=== PATIENT | female | born 1990 | race Two or more races ===

== ENCOUNTER 2020-03-15 10:57 | Emergency (ER) | payer MEDICAID, OTHER ==
[~2020-03-15] VITALS: Ht 157.5 cm; Wt 86.2 kg
[2020-03-15 11:45] LABS: Basophils # (auto) 0.1 10 ^3/uL (0-0.2); Basophils % (auto) 1.3 % (0.0-2.0); Eosinophils # (auto) 0.1 10 ^3/uL (0-0.8); Eosinophils % (auto) 1.3 % (0.0-7.0); Hematocrit 50.5 % (36.0-46.0); Hemoglobin 17.6 g/dL (12.2-16.2); Lymphocytes # (auto) 1.2 10 ^3/uL (0.4-5.4); Lymphocytes % (auto) 17.1 % (10.0-50.0); Mean Corpuscular Hemoglobin 30.8 pg (28.0-32.0); Mean Corpuscular Hgb Conc. 34.8 g/dL (32.0-36.0); Mean Corpuscular Volume 88.5 fL (80.0-100.0); Monocytes # (auto) 0.7 10 ^3/uL (0-1.3); Monocytes % (auto) 10.1 % (0.0-12.0); Neutrophils # (auto) 4.9 10 ^3/uL (1.6-8.6); Neutrophils % (auto) 70.2 % (37.0-80.0); Nucleated Red Blood Cells % 0.1 %; Red Blood Cells 5.71 10^6/uL (4.0-5.20); Red Cell Distribution Width 13.9 % (11.8-14.3); White Blood Cell 6.9 10^3/uL (4.4-10.8)
[2020-03-15 12:03] LABS: Albumin 4.2 g/dL (3.4-5.0); Anion Gap 6 (5-15); Blood Urea Nitrogen 6 mg/dL (7-18); Calcium 9.4 mg/dL (8.5-10.1); Carbon Dioxide 29 mmol/L (21-32); Chloride 100 mmol/L (98-107); Glucose 97 mg/dL (74-106); Sodium 135 mmol/L (136-145)
[2020-03-15 12:10] LABS: Alanine Aminotransferase 56 U/L (13-56); Alkaline Phosphatase 91 U/L (45-117); Aspartate Aminotransferase 49 U/L (15-37); BUN/Creatinine Ratio 7.1; Bilirubin, Total 0.6 mg/dL (0.2-1.0); GFR African American 103 mL/min; GFR Non-African American 85 mL/min; Total Protein 9.7 g/dL (6.4-8.2)
[2020-03-15 12:30] LABS: Amphetamine Screen, Urine NEGATIVE (NEGATIVE); Barbiturate Scree,Urine NEGATIVE (NEGATIVE); Benzodiazephine Screen, Urine NEGATIVE (NEGATIVE); Cannabinoid Screen, Urine NEGATIVE (NEGATIVE); Cocaine Screen, Urine NEGATIVE (NEGATIVE); Opiate Scree,Urine NEGATIVE (NEGATIVE); Phencyclidine Screen, Urine NEGATIVE (NEGATIVE); Urine Bacteria FEW /hpf (None Seen); Urine Blood 3+ /uL (Negative); Urine Mucus FEW (None Seen); Urine Specific Gravity 1.015 (1.001-1.035); Urine WBC 65 /hpf (0 - 5); Urine WBC Clumps PRESENT /hpf (None Seen)
[2020-03-15 12:45] VITALS: BP 147/118
[2020-03-15] MEDS ORDERED: cefTRIAXone SOD 1,000 MG VL IM ONE (13:00)
[2020-03-15] MEDS ORDERED: POTASSIUM EFFERVESENT TAB 25 MEQ PO ONE (13:00)
[2020-03-15] MEDS ORDERED: ALPRAZolam 0.5 MG TAB PO ONE (13:15)
== END 2020-03-15 14:00 | disposition home or self-care (01) ==
LOC: ER 10:57
DX: R00.2 Palpitations (principal); N39.0 Urinary tract infection, site not specified; F10.920 Alcohol use, unspecified with intoxication, uncomplicated; E87.6 Hypokalemia; F41.9 Anxiety disorder, unspecified; I10 Essential (primary) hypertension
CPT/HCPCS: 36415; 80053; 80307; 81001; 81025; 84443; 84484; 85025; 93005; 96372; 99284; J0696

== ENCOUNTER 2020-06-15 20:42 | Emergency (ER) | payer MEDICAID ==
[~2020-06-15] VITALS: Ht 157.5 cm; Wt 83.5 kg
[2020-06-15 21:01] LABS: Urine WBC None Seen /hpf (0 - 5)
[2020-06-15 21:19] LABS: Urine Bacteria NONE SEEN /hpf (None Seen); Urine Blood Negative /uL (Negative); Urine Specific Gravity 1.001 (1.001-1.035)
[2020-06-15 22:28] VITALS: BP 149/106
[2020-06-16] MEDS ORDERED: MAGNESIUM CITRATE SOLUTION 300 ML BTL PO ONE
== END 2020-06-16 00:32 | disposition home or self-care (01) ==
LOC: ER 20:48
DX: K59.00 Constipation, unspecified (principal); N83.9 Noninflammatory disorder of ovary, fallopian tube and broad ligament, unspecified; E66.8 Other obesity; I10 Essential (primary) hypertension; Z68.33 Body mass index [BMI] 33.0-33.9, adult; Z32.02 Encounter for pregnancy test, result negative
CPT/HCPCS: 74176; 81001; 81025

== ENCOUNTER 2020-06-26 11:18 | Emergency (ER) | payer MEDICAID ==
[~2020-06-26] VITALS: Ht 157.5 cm; Wt 83.5 kg
[2020-06-26] MEDS ORDERED: SODIUM CHLORIDE 0.9% 1,000 ML IV ONE ×2 (11:30)
[2020-06-26] MEDS ORDERED: THIAMINE 100mg/ml INJ (200mg/2ml VIAL) IV ONE (11:30)
[2020-06-26] MEDS ORDERED: PANTOPRAZOLE 40 MG/10 ML VIAL INJ IV ONE (11:30)
[2020-06-26 13:34] LABS: Basophils # (auto) 0.1 10 ^3/uL (0-0.2); Basophils % (auto) 1.3 % (0.0-2.0); Eosinophils # (auto) 0.1 10 ^3/uL (0-0.8); Eosinophils % (auto) 2.9 % (0.0-7.0); Hematocrit 46.2 % (36.0-46.0); Hemoglobin 15.9 g/dL (12.2-16.2); Lymphocytes # (auto) 1.5 10 ^3/uL (0.4-5.4); Lymphocytes % (auto) 33.5 % (10.0-50.0); Mean Corpuscular Hemoglobin 32.9 pg (28.0-32.0); Mean Corpuscular Hgb Conc. 34.6 g/dL (32.0-36.0); Mean Corpuscular Volume 95.2 fL (80.0-100.0); Monocytes # (auto) 0.3 10 ^3/uL (0-1.3); Monocytes % (auto) 7.2 % (0.0-12.0); Neutrophils # (auto) 2.5 10 ^3/uL (1.6-8.6); Neutrophils % (auto) 55.1 % (37.0-80.0); Nucleated Red Blood Cells % 0.1 %; Platelet Count (auto) 219 10^3/uL (140-450); Red Blood Cells 4.85 10^6/uL (4.0-5.20); Red Cell Distribution Width 14.1 % (11.8-14.3); White Blood Cell 4.5 10^3/uL (4.4-10.8)
[2020-06-26 13:49] LABS: INR 0.98 (0.9-1.15); Partial Thromboplastin Time 26.5 sec (23.0-31.2)
[2020-06-26 13:55] LABS: Urine Bacteria FEW /hpf (None Seen); Urine Blood Negative /uL (Negative); Urine Mucus FEW (None Seen); Urine Specific Gravity 1.023 (1.001-1.035); Urine WBC 49 /hpf (0 - 5)
[2020-06-26 13:59] LABS: Calcium 8.8 mg/dL (8.5-10.1); Chloride 106 mmol/L (98-107); Potassium 4.1 mmol/L (3.5-5.1); Sodium 141 mmol/L (136-145)
[2020-06-26 14:06] LABS: Alanine Aminotransferase 96 U/L (13-56); Albumin 3.7 g/dL (3.4-5.0); Alkaline Phosphatase 80 U/L (45-117); Anion Gap 8 (5-15); Aspartate Aminotransferase 109 U/L (15-37); BUN/Creatinine Ratio 7.4; Bilirubin, Total 0.4 mg/dL (0.2-1.0); Blood Urea Nitrogen 5 mg/dL (7-18); Carbon Dioxide 27 mmol/L (21-32); GFR African American 132 mL/min; GFR Non-African American 109 mL/min; Glucose 80 mg/dL (74-106); Total Protein 8.2 g/dL (6.4-8.2)
[2020-06-26 14:26] VITALS: BP 134/93
== END 2020-06-26 14:34 | disposition home or self-care (01) ==
LOC: ER 11:18
DX: N39.0 Urinary tract infection, site not specified (principal); F41.1 Generalized anxiety disorder; F10.10 Alcohol abuse, uncomplicated; I10 Essential (primary) hypertension; Y90.9 Presence of alcohol in blood, level not specified
CPT/HCPCS: 36415; 71045; 74176; 80053; 80320; 81001; 84484; 85025; 85610; 85730; 96361; 96374; 96375; 99285; C9113; J3411; J7030

== ENCOUNTER 2021-05-22 00:27 | Emergency (ER) | payer MEDICAID ==
[~2021-05-22] VITALS: Ht 157.5 cm; Wt 63.5 kg
[2021-05-22 00:31] VITALS: BP 132/97
== END 2021-05-22 02:05 | disposition left against medical advice (07) ==
LOC: ER 00:29
DX: H53.8 Other visual disturbances (principal); Z53.21 Procedure and treatment not carried out due to patient leaving prior to being seen by health care provider

== ENCOUNTER 2021-08-28 16:52 | Emergency (ER) | payer MEDICAID ==
[~2021-08-28] VITALS: Ht 157.5 cm; Wt 3.8 kg
[2021-08-28] MEDS ORDERED: LORazepam 2MG/ML-1ML VIAL IV ONE (18:00)
[2021-08-28] MEDS ORDERED: SODIUM CHLORIDE 0.9% 1,000 ML IV ONE (18:00)
[2021-08-28 19:09] LABS: Basophils # (auto) 0.2 10 ^3/uL (0-0.2); Eosinophils # (auto) 0 10 ^3/uL (0-0.8); Mean Corpuscular Hgb Conc. 33.8 g/dL (32.0-36.0)
[2021-08-28 19:12] LABS: Hematocrit 46.1 % (36.0-46.0); Hemoglobin 15.6 g/dL (12.2-16.2); Lymphocytes # (auto) 0.2 10 ^3/uL (0.4-5.4); Lymphocytes % (auto) 1.2 % (10.0-50.0); Mean Corpuscular Hemoglobin 33.9 pg (28.0-32.0); Mean Corpuscular Volume 100.2 fL (80.0-100.0); Monocytes # (auto) 1.1 10 ^3/uL (0-1.3); Neutrophils # (auto) 17.7 10 ^3/uL (1.6-8.6); Neutrophils % (auto) 91.8 % (37.0-80.0); Nucleated Red Blood Cells % 0.1 %; Red Blood Cells 4.61 10^6/uL (4.0-5.20); Red Cell Distribution Width 15.3 % (11.8-14.3); White Blood Cell 19.3 10^3/uL (4.4-10.8)
[2021-08-28 19:23] LABS: Albumin 3.5 g/dL (3.4-5.0); Anion Gap 10 (5-15); Blood Urea Nitrogen 6 mg/dL (7-18); Calcium 8.7 mg/dL (8.5-10.1); Carbon Dioxide 24 mmol/L (21-32); Chloride 104 mmol/L (98-107); Glucose 131 mg/dL (74-106); Magnesium 1.6 mg/dL (1.6-2.6); Potassium 3.4 mmol/L (3.5-5.1); Sodium 138 mmol/L (136-145)
[2021-08-28 19:25] LABS: Alanine Aminotransferase 45 U/L (13-56); Aspartate Aminotransferase 53 U/L (15-37); BUN/Creatinine Ratio 7.4; GFR African American 107 mL/min; GFR Non-African American 88 mL/min
[2021-08-28 19:28] LABS: Alkaline Phosphatase 143 U/L (45-117); Bilirubin, Total 1.8 mg/dL (0.2-1.0); Total Protein 8.4 g/dL (6.4-8.2)
[2021-08-28 19:56] LABS: Urine Bacteria FEW /hpf (None Seen); Urine Blood 2+ /uL (Negative); Urine Budding Yeast MANY /hpf (None Seen); Urine Specific Gravity 1.018 (1.001-1.035); Urine WBC 1653 /hpf (0 - 5); Urine WBC Clumps PRESENT /hpf (None Seen)
[2021-08-28 20:08] LABS: Blood Alcohol < 3.0 mg/dL (0-5)
[2021-08-28 20:09] LABS: Alcohol, Urine < 3.0 mg/dL (0-10); Amphetamine Screen, Urine NEGATIVE (NEGATIVE); Barbiturate Scree,Urine NEGATIVE (NEGATIVE); Benzodiazephine Screen, Urine NEGATIVE (NEGATIVE); Cannabinoid Screen, Urine NEGATIVE (NEGATIVE); Cocaine Screen, Urine NEGATIVE (NEGATIVE); Opiate Scree,Urine NEGATIVE (NEGATIVE); Phencyclidine Screen, Urine NEGATIVE (NEGATIVE)
[2021-08-28] MEDS ORDERED: LORazepam 0.5 MG TAB PO ONE (20:15)
[2021-08-28] MEDS ORDERED: cefTRIAXone 1GM/50ML D5W 50 ML IV ONE (20:30)
[2021-08-28] MEDS ORDERED: CIPR-173 PO (21:24)
[2021-08-28] MEDS ORDERED: ONDA-144 PO (21:24)
[2021-08-28 21:30] LABS: Lactic Acid w/Reflex 2.2 mmol/L (0.4-2.0)
[2021-08-28 21:55] VITALS: BP 120/96
== END 2021-08-28 22:03 | disposition home or self-care (01) ==
LOC: ER 16:52
DX: N39.0 Urinary tract infection, site not specified (principal); R11.2 Nausea with vomiting, unspecified; I10 Essential (primary) hypertension
CPT/HCPCS: 36415; 70450; 74176; 80053; 80307; 80320; 81001; 81025; 83605; 83735; 85025; 87040; 96361; 96365; 99284; J0696; J7030

== ENCOUNTER 2024-05-16 11:49 | Inpatient (IN) | payer MEDICAID ==
[~2024-05-16] VITALS: Ht 157.5 cm; Wt 65.1 kg
[~2024-05-16 11:49] MED LIST: CIPR-173 PO; ONDA-144 PO
[2024-05-16 12:35] LABS: Urine Bacteria MANY /hpf (None Seen); Urine Blood Negative /uL (Negative); Urine Color Dark-Yellow (Yellow); Urine Mucus FEW (None Seen); Urine Protein, UAD 1+ (Negative); Urine Specific Gravity 1.032 (1.001-1.035); Urine Squamous Epithelial Cell FEW /hpf (<5); Urine Urobilinogen OVER mg/dL (Negative); Urine WBC 7 /HPF (0-5)
[2024-05-16 12:36] LABS: Urine Clarity Hazy (Clear)
[2024-05-16] MEDS: LORazepam 2MG/ML-1ML VIAL IV ONE (13:20)
[2024-05-16] MEDS: SODIUM CHLORIDE 0.9% 1,000 ML IV ONE (13:20)
[2024-05-16] MEDS: chlordiazePOXIDE HCL 25 MG CAP PO ONE (13:20)
[2024-05-16 13:24] VITALS: PULSE 109; RESP 19; O2SAT 98
[2024-05-16 13:28] LABS: Cannabinoid Screen, Urine Neg (NEGATIVE)
[2024-05-16 13:29] LABS: Amphetamine Screen, Urine Neg (NEGATIVE); Barbiturate Scree,Urine Neg (NEGATIVE); Benzodiazephine Screen, Urine Neg (NEGATIVE); Cocaine Screen, Urine Neg (NEGATIVE); Opiate Scree,Urine Neg (NEGATIVE); Phencyclidine Screen, Urine Neg (NEGATIVE)
[2024-05-16 13:57] LABS: Basophils # (auto) 0.1 10 ^3/uL (0-0.2); Basophils % (auto) 0.8 % (0.0-2.0); Eosinophils # (auto) 0.2 10 ^3/uL (0-0.8); Hemoglobin 13.9 g/dL (12.2-16.2); Lymphocytes # (auto) 1.8 10 ^3/uL (0.4-5.4); Monocytes # (auto) 0.8 10 ^3/uL (0-1.3); Red Blood Cells 3.67 10^6/uL (4.0-5.20)
[2024-05-16 13:59] LABS: Eosinophils % (auto) 2.4 % (0.0-7.0); Hematocrit 38.7 % (36.0-46.0); Lymphocytes % (auto) 17.3 % (10.0-50.0); Mean Corpuscular Volume 105.4 fL (80.0-100.0); Monocytes % (auto) 7.9 % (0.0-12.0); Neutrophils # (auto) 7.4 10 ^3/uL (1.6-8.6); Neutrophils % (auto) 71.6 % (37.0-80.0); Nucleated Red Blood Cells % 0.1 %; Platelet Count (auto) 263 10^3/uL (140-450); Red Cell Distribution Width 16.1 % (11.8-14.3); White Blood Cell 10.4 10^3/uL (4.4-10.8)
[2024-05-16 14:13] LABS: Albumin 3.9 g/dL (3.2-4.8); Anion Gap 6 (5-15); Calcium 9.1 mg/dL (8.7-10.4); Carbon Dioxide 30 mmol/L (20-31); Chloride 100 mmol/L (98-107); Glucose 105 mg/dL (74-106); Sodium 136 mmol/L (136-145)
[2024-05-16 14:14] LABS: Alanine Aminotransferase 40 U/L (7-40); Alkaline Phosphatase 231 U/L (46-116); Aspartate Aminotransferase 146 U/L (13-40); BUN/Creatinine Ratio 9.8 (10.0-20.0); Bilirubin, Total 5.4 mg/dL (0.2-1.0); Blood Urea Nitrogen < 5 mg/dL (9-23); Potassium 2.7 mmol/L (3.5-5.1)
[2024-05-16 14:15] LABS: Total Protein 8.3 g/dL (5.7-8.2)
--- NOTE | 2024-05-16 17:47 | ED.PDOC ---
History of Present Illness HPI Comments 33y F who presents to the ED for chief complaint of ETOH withdrawal. Pt states earlier today, she noticed yellowing of her eyes and states she is withdrawing from alcohol. Pt states she is daily drinker and states she usually drinks half a bottle of hard liquor but states over the past month, she has been having only 2-3 shots of hard liquor. Pt states last drink was 1900 last night PM. Pt otherwise denies nausea, vomiting, abdominal pain, fever, cough, chills, chest pain, shortness of breath, headache or dizziness. Pt in the ED, has noted heart rate of 116, resp rate of 22 and blood pressure of 142/106 but has noted stable 02 sat of 98% on room air. Pt otherwise denies any other symptoms at this time. Chief Complaint: Withdrawal Time Seen by MD: 12:51 Primary Care Provider: unknown Reviewed Notes: Medications, Allergies Allergies: Coded Allergies: NO KNOWN ALLERGIES (Unverified , 06/15/20) Home Meds Active Scripts Ciprofloxacin Hcl (Cipro) 500 Mg Tab, 1 TAB PO BID, #20 TAB Prov:VANE HAND MD 08/28/21 Ondansetron (Zofran) 4 Mg Tab, 1 TAB PO Q6HR, #20 TAB Prov:VANE HAND MD 08/28/21 Information Source: Patient Mode of Arrival: Ambulatory Past Medical History PAST MEDICAL HISTORY: Anxiety, HTN Past Medical History (Other): Psoriasis, Alcohol dependence Surgical History (Other): Abdominal tumor resection, oophorectomy FILE CLERK History: No Pertinent FILE CLERK History Family History Family History: Family hx of DM, Family hx of lung rhianna Social History Smoker: Non-Smoker Alcohol: Heavy Drugs: Denies Drug Use Lives In: Home Constitutional: denies: chills, diaphoresis, fatigue, fever, malaise, sweats, weakness, others EENTM: denies: blurred vision, double vision, ear bleeding, ear discharge, ear drainage, ear pain, ear ringing, eye pain, eye redness, hearing loss, mouth pain, mouth swelling, nasal discharge, nose bleeding, nose congestion, nose pain, photophobia, tearing, throat pain, throat swelling, voice changes, others Respiratory: denies: cough, hemoptysis, orthopnea, SOB at rest, shortness of breath, SOB with excertion, stridor, wheezing, others Cardiovascular: denies: chest pain, dizzy spells, diaphoresis, Dyspnea on exertion, edema, irregular heart beat, left arm pain, lightheadedness, palpitations, PND, syncope, others Gastrointestinal: denies: abdomen distended, abdominal pain, blood streaked bowels, constipated, diarrhea, dysphagia, difficulty swallowing, hematemesis, melena, nausea, poor appetite, poor fluid intake, rectal bleeding, rectal pain, vomiting, others Genitourinary: denies: abnormal vagina bleeding, burning, dyspareunia, dysuria, flank pain, frequency, hematuria, incontinence, pain, , vagina discharge, urgency, others Neurological: denies: dizziness, fainting, headache, left sided numbness, left sided weakness, numbness, paresthesia, pre-existing deficit, right sided numbness, right sided weakness, seizure, speech problems, tingling, tremors, weakness, others Musculoskeletal: denies: back pain, gout, joint pain, joint swelling, muscle pain, muscle stiffness, neck pain, others Integumetry: denies: bruises, change in color, change in hair/nails, dryness, laceration, lesions, lumps, rash, wounds, others Allergic/Immunocompromised: denies: Difficulty Healing, Frequent Infections, Hives, Itching, others Hematologic/Lymphatic: denies: anemia, blood clots, easy bleeding, easy bruising, swollen glands, others Endocrine: denies: excessive hunger, excessive sweating, excessive thirst, excessive urination, flushing, intolerance to cold, intolerance to heat, unexplained weight gain, unexplained weight loss, others Psychiatric: denies: anxiety, bipolar disorder, depression, hopeless, panic disorder, schizophrenia, sleepless, suicidal, others All Other Systems: Reviewed and Negative Physical Exam General Appearance: No Apparent Distress HEENT: PERRL/EOMI, Scleral Icterus (R) Neck: Full Range of Motion, Normal Inspection Respiratory: Lungs Clear, No Accessory Muscle Use, No Respiratory Distress, Normal Breath Sounds Cardiovascular: No Edema, No JVD, Tachycardia Breast Exam: Deferred Gastrointestinal: Non Tender, Soft Genitalia: Deferred Pelvic: Deferred Rectal: Tenderness Extremities: Normal inspection, Normal range of motion, Non-tender, No pedal edema Neurologic: Alert (Oriented x4), Normal Affect, Normal Mood, Other (Ambulatory. Slightly tremulous. No gross focal deficit.) Cerebellar Function: NOT DONE Reflexes: NOT DONE Skin: Dry, Jaundice, Warm Lymphatic: NOT DONE Was a procedure done? Was a procedure done?: No Differential Dx Considerations may include: ETOH withdrawal, hepatic encephalopathy, delirium tremens, ETOH use disorder, li kevin disease, jaundice, UTI among others X-Ray, Labs, Meds, VS Vital Signs Date Time Temp Pulse Resp B/P (MAP) Pulse Ox O2 Delivery O2 Flow Rate FiO2 05/16/24 18:16 116 22 142/106 (118) 98 05/16/24 14:35 99 16 123/90 (101) 98 05/16/24 13:24 109 19 98 Room Air* 0 21 05/16/24 13:24 97.9 109 19 138/99 (112) 98 97.9 05/16/24 12:09 97.5 114 18 146/110 (122) 95 Lab Test 05/16/24 14:58 05/16/24 13:40 05/16/24 12:10 Range/Units Troponin I High Sensitivity < 3 L < 3 L </=34 ng/L White Blood Count 10.4 4.4-10.8 10^3/uL Red Blood Count 3.67 L 4.0-5.20 10^6/uL Hemoglobin 13.9 12.2-16.2 g/dL Hematocrit 38.7 36.0-46.0 % Mean Corpuscular Volume 105.4 H 80.0-100.0 fL Mean Corpuscular Hemoglobin 38.0 H 28.0-32.0 pg Mean Corpuscular Hemoglobin Concent 36.0 32.0-36.0 g/dL Red Cell Distribution Width 16.1 H 11.8-14.3 % Platelet Count 263 140-450 10^3/uL Mean Platelet Volume 8.9 6.9-10.8 fL Neutrophils (%) (Auto) 71.6 37.0-80.0 % Lymphocytes (%) (Auto) 17.3 10.0-50.0 % Monocytes (%) (Auto) 7.9 0.0-12.0 % Eosinophils (%) (Auto) 2.4 0.0-7.0 % Basophils (%) (Auto) 0.8 0.0-2.0 % Neutrophils # (Auto) 7.4 1.6-8.6 10 ^3/uL Lymphocytes # (Auto) 1.8 0.4-5.4 10 ^3/uL Monocytes # (Auto) 0.8 0-1.3 10 ^3/uL Eosinophils # (Auto) 0.2 0-0.8 10 ^3/uL Basophils # (Auto) 0.1 0-0.2 10 ^3/uL Nucleated Red Blood Cells 0.1 % Sodium Level 136 136-145 mmol/L Potassium Level 2.7 L 3.5-5.1 mmol/L Chloride Level 100 98-107 mmol/L Carbon Dioxide Level 30 20-31 mmol/L Anion Gap 6 5-15 Blood Urea Nitrogen < 5 L 9-23 mg/dL Creatinine 0.51 L 0.550-1.02 mg/dL Glomerular Filtration Rate Calc 126 >90 mL/min BUN/Creatinine Ratio 9.8 L 10.0-20.0 Serum Glucose 105 74-106 mg/dL Calcium Level 9.1 8.7-10.4 mg/dL Total Bilirubin 5.4 H 0.2-1.0 mg/dL Aspartate Amino Transferase (AST) 146 H 13-40 U/L Alanine Aminotransferase (ALT) 40 7-40 U/L Alkaline Phosphatase 231 H 46-116 U/L B-Type Natriuretic Peptide 16.53 0-100 pg/mL Total Protein 8.3 H 5.7-8.2 g/dL Albumin 3.9 3.2-4.8 g/dL Beta HCG, Quantitative < 1.5 L 1.5-4.2 mIU/mL Plasma/Serum Blood Alcohol 5.0 <10 mg/dL Hepatitis A IgM Antibody Pending Hepatitis B Surface Antigen Pending Hepatitis B Core IgM Antibody Pending Hepatitis C Antibody Pending Urine Color Dark-yellow Yellow Urine Clarity Hazy H Clear Urine pH 6.0 5.0-9.0 Urine Specific [place] 1.032 1.001-1.035 Urine Protein 1+ H Negative Urine Ketones Trace Negative Urine Blood Negative Negative /uL Urine Nitrite 2+ H Negative Urine Bilirubin 2+ H Negative Urine Urobilinogen Over Negative mg/dL Urine Leukocyte Esterase Negative Negative /uL Urine RBC None seen 0 - 4 /hpf Urine Microscopic WBC 7 H 0-5 /HPF Urine Squamous Epithelial Cells Few <5 /hpf Urine Bacteria Many H None Seen /hpf Urine Mucus Few None Seen Urine Glucose Trace Normal mg/dL Urine Opiates Screen Neg NEGATIVE Urine Fentanyl Screen Neg NEGATIVE Urine Barbiturates Screen Neg NEGATIVE Urine Phencyclidine Screen Neg NEGATIVE Urine Amphetamines Screen Neg NEGATIVE Urine Benzodiazepines Screen Neg NEGATIVE Urine Cocaine Screen Neg NEGATIVE Urine Cannabinoids Screen Neg NEGATIVE Current Medications Medications (Trade) Dose Ordered Sig/Ana Route Start Time Stop Time Status Last Admin Lorazepam (Ativan Inj) 1 mg ONCE ONCE IV 05/16/24 13:15 05/16/24 13:16 DC 05/16/24 13:20 Chlordiazepoxide HCl (Librium Capsule) 50 mg ONCE ONCE PO 05/16/24 13:15 05/16/24 13:16 DC 05/16/24 13:20 Sodium Chloride 1,000 ml @ 1,000 mls/hr Q1H ONCE IV 05/16/24 13:15 05/16/24 14:14 DC 05/16/24 13:20 Ceftriaxone Sodium 50 ml @ 100 mls/hr ONCE ONCE IV 05/16/24 17:45 05/16/24 18:14 DC 05/16/24 18:05 Potassium Chloride 100 ml @ 50 mls/hr ONCE ONCE IV 05/16/24 17:45 05/16/24 19:44 DC 05/16/24 18:32 Potassium Bicarbonate (Klor-Con/Ef) 50 meq ONCE ONCE PO 05/16/24 17:45 05/16/24 17:48 DC 05/16/24 18:02 X-Ray, Labs, Meds, VS Comment 33-year-old female with a history of psoriasis presenting for evaluation of yellow eyes. Patient states up until about a month ago she had been drinking half a bottle of liquor a day, and has since been trying to decrease her alcohol intake. Vitals remarkable for heart rate 114, BP 146/110 Exam remarkable for tachycardia and icteric sclera, mild tremulousness Rhythm strip independently interpreted by me: Sinus tach, rate 114, no ectopy. CBC unremarkable, metabolic panel remarkable for potassium 2.7, total bilirubin 5.4, AST 146, alkaline phos 231, BNP and troponins unremarkable, urine drug screen negative, hCG negative, alcohol level 5 Patient treated with the following in the ED: 1 L 0.9 normal saline IV bolus, Ativan 1 mg IV, Librium 50 mg p.o., Rocephin 1 g IV, effervescent potassium 50 mEq p.o., K rider 20 mEq IV On re-evaluation, patient states she is not in pain, she does not appear tremulous. Plan is to admit the patient for treatment of early alcohol withdrawal, electrolyte correction, IV antibiotics to treat her UTI, and GI evaluation of her hyperbilirubinemia Time of 1ST Reevaluation: 17:47 Reevaluation 1ST: Improved Patient Education/Counseling: Diagnosis, Treatment Family Education/Counseling: No Family Present Additional Information -Reviewed patient's previous visit(s): - The following tests were ordered, and results were reviewed by me: ua, tropx2, cbc, cmp, bnp, blood alcohol, drug screen, beta hcg - I reviewed and agreed with the following test results read by other provider: none - I discussed treatments and results with medical personnel and: patient Comprehensive systems review obtained and negative except for what is stated in the HPI. Departure 1 Departure Time of Disposition: 17:42 Impression: Primary Impression: Hyperbilirubinemia Additional Impressions: Alcohol abuse Hypokalemia UTI (urinary tract infection) Qualified Codes: N39.0 - Urinary tract infection, site not specified Disposition: 09 ADMITTED INPATIENT Admit to: Med Surg Condition: Guarded Critical Care Note Critical Care Time?: No Stability Stability form required: No Heart Score Heart Score: Heart Score Response (Comments) Value History N/A 0 EKG N/A 0 Age N/A 0 Risk Factors N/A 0 Troponin N/A 0 Total 0 I personally scribed for HARMONY CADE MD ([facility] on 05/16/24 at 19:38. Electronically submitted by Kai IVEY). HARMONY CADE MD May 16, 2024 17:47
[2024-05-16] MEDS: POTASSIUM EFFERVESENT TAB 25 MEQ PO ONE (18:02)
[2024-05-16] MEDS: cefTRIAXone 1GM/50ML D5W 50 ML IV ONE (18:05)
[2024-05-16] MEDS: POTASSIUM CHL 20MEQ/100ML 100 ML IV ONE (18:32)
[2024-05-16] MEDS ORDERED: ONDANSETRON HCL 4 MG/2 ML VIAL IV PRN (19:00)
[2024-05-16] MEDS ORDERED: TEMAZEPAM 15 MG CAP PO PRN (19:00)
[2024-05-16 19:30] VITALS: PULSE 118
--- NOTE | 2024-05-16 20:42 | DVH ---
INDICATION: jaundice TECHNIQUE: Multiple real-time sonographic images were obtained of the right upper quadrant. COMPARISON: None FINDINGS: Liver is mildly enlarged measuring 17.5 cm and demonstrates diffuse increased echogenicity consistent with fatty infiltration. No definite focal lesion is identified in the liver. No evidence of intrahepatic or extrahepatic ductal dilatation. Common bile duct measures 5-6 mm. Gallbladder appears unremarkable with no evidence of stones or wall thickening. Sonographic France's sign was negative. Right kidney measures 11.1 cm and is normal in size, contour and echogenicity. No hydronephrosis. Pancreas is not well visualized due to overlying bowel gas. No free fluid noted IMPRESSION: No acute intracranial abnormality identified. Fatty infiltration of the liver.
[2024-05-16 21:00] VITALS: BP 114/83; PULSE 124; RESP 16; TEMP 98.4; O2SAT 98
[2024-05-16] MEDS ORDERED: CALC0.0013 (21:03)
[2024-05-16] MEDS ORDERED: CLOB0.059 (21:03)
[2024-05-16] MEDS ORDERED: SECU1INJ (21:03)
[2024-05-16 21:11] LABS: Hepatitis B Surface Antigen Negative (Negative)
[2024-05-16 21:35] LABS: Hepatitis A Ab IgM Negative; Hepatitis B Core IgM Negative (Negative); Hepatitis C Antibody Negative (Negative)
--- NOTE | 2024-05-16 21:39 | DVHHP2 ---
History of Present Illness Reason for Visit: Alcohol withdrawal History of Present Illness 33-year-old female presents for evaluation of alcohol withdrawal. Patient reports being a heavy drinker over the past year. She states drinking approximately half a bottle of vodka daily. She states over the past month she has been cutting down to drinking only 2-3 drinks per day. She reports a two day history of feeling jittery with palpitations. She has also noticed yellowing in her eyes. Denies abdominal pain, nausea or vomiting. No other acute complaints reported. Past Medical History Anxiety Past Surgical History Denies Family History Diabetes mellitus lung disease Smoke: No ALCOHOL: heavy Drugs: None Lives: with Family Review of Systems Review of Systems Review of systems are currently negative otherwise addressed in HPI. Allergies: Coded Allergies: NO KNOWN ALLERGIES (Unverified , 06/15/20) Medications Current Medications Medications Dose Ordered Sig/Ana Route Start Time Stop Time Status Last Admin Dose Admin Propranolol HCl 20 mg BID PO 05/16/24 22:00 Temazepam 15 mg QHSP PRN PO 05/16/24 19:00 Ondansetron HCl 4 mg Q4HP PRN IV 05/16/24 19:00 Exam Vital Signs Vital Signs Date Time Temp Pulse Resp B/P (MAP) Pulse Ox O2 Delivery O2 Flow Rate FiO2 05/16/24 19:30 118 Room Air* 0 21 05/16/24 19:30 99.0 114/81 (92) 99.0 05/16/24 18:16 22 98 Exam Gen: 33-year-old female in mild distress Skin: Warm, dry, normal color and texture, no rash. HEENT: Normocephalic atraumatic, sclerae icterus Neck: Cervical and supraclavicular nodes normal without enlargement, trachea is midline, thyroid gland is normal without masses. Pulmonary: Clear to auscultation and percussion bilaterally. Cardiac: Regular rate and rhythm. No murmur Abdomen: Soft, nontender, nondistended, bowel sounds present all 4 quadrants, no guarding, no rigidity, no organomegaly. Extremities: No cyanosis, clubbing, no edema Neuro: Cranial nerves II through XII grossly intact, normal affect and speech, no focal motor deficits. Labs/Xrays ORDERING PHYSICIAN: ALFRED PETERSON PROCEDURE(s): LIVUS - LIVER REASON: jaundice ORDER NUMBER(s): [id number], ACCESSION NUMBER(s): [id number] INDICATION: jaundice TECHNIQUE: Multiple real-time sonographic images were obtained of the right up per quadrant. COMPARISON: None FINDINGS: Liver is mildly enlarged measuring 17.5 cm and demonstrates diffuse increased echogenicity consistent with fatty infiltration. No definite focal lesion is identified in the liver. No evidence of intrahepatic or extrahepatic ductal dilatation. Common bile duct measures 5-6 mm. Gallbladder appears unremarkable with no evidence of stones or wall thickening. Sonographic France's sign was negative. Right kidney measures 11.1 cm and is normal in size, contour and echogenicity. No hydronephrosis. Pancreas is not well visualized due to overlying bowel gas. No free fluid noted IMPRESSION: No acute intracranial abnormality identified. Fatty infiltration of the liver. Labs Test 05/16/24 14:58 05/16/24 13:40 05/16/24 12:10 Range/Units Troponin I High Sensitivity < 3 L </=34 ng/L White Blood Count 10.4 4.4-10.8 10^3/uL Red Blood Count 3.67 L 4.0-5.20 10^6/uL Hemoglobin 13.9 12.2-16.2 g/dL Hematocrit 38.7 36.0-46.0 % Mean Corpuscular Volume 105.4 H 80.0-100.0 fL Mean Corpuscular Hemoglobin 38.0 H 28.0-32.0 pg Mean Corpuscular Hemoglobin Concent 36.0 32.0-36.0 g/dL Red Cell Distribution Width 16.1 H 11.8-14.3 % Platelet Count 263 140-450 10^3/uL Mean Platelet Volume 8.9 6.9-10.8 fL Neutrophils (%) (Auto) 71.6 37.0-80.0 % Lymphocytes (%) (Auto) 17.3 10.0-50.0 % Monocytes (%) (Auto) 7.9 0.0-12.0 % Eosinophils (%) (Auto) 2.4 0.0-7.0 % Basophils (%) (Auto) 0.8 0.0-2.0 % Neutrophils # (Auto) 7.4 1.6-8.6 10 ^3/uL Lymphocytes # (Auto) 1.8 0.4-5.4 10 ^3/uL Monocytes # (Auto) 0.8 0-1.3 10 ^3/uL Eosinophils # (Auto) 0.2 0-0.8 10 ^3/uL Basophils # (Auto) 0.1 0-0.2 10 ^3/uL Nucleated Red Blood Cells 0.1 % Sodium Level 136 136-145 mmol/L Potassium Level 2.7 L 3.5-5.1 mmol/L Chloride Level 100 98-107 mmol/L Carbon Dioxide Level 30 20-31 mmol/L Anion Gap 6 5-15 Blood Urea Nitrogen < 5 L 9-23 mg/dL Creatinine 0.51 L 0.550-1.02 mg/dL Glomerular Filtration Rate Calc 126 >90 mL/min BUN/Creatinine Ratio 9.8 L 10.0-20.0 Serum Glucose 105 74-106 mg/dL Calcium Level 9.1 8.7-10.4 mg/dL Total Bilirubin 5.4 H 0.2-1.0 mg/dL Aspartate Amino Transferase (AST) 146 H 13-40 U/L Alanine Aminotransferase (ALT) 40 7-40 U/L Alkaline Phosphatase 231 H 46-116 U/L B-Type Natriuretic Peptide 16.53 0-100 pg/mL Total Protein 8.3 H 5.7-8.2 g/dL Albumin 3.9 3.2-4.8 g/dL Beta HCG, Quantitative < 1.5 L 1.5-4.2 mIU/mL Plasma/Serum Blood Alcohol 5.0 <10 mg/dL Hepatitis B Surface Antigen Negative Negative Urine Color Dark-yellow Yellow Urine Clarity Hazy H Clear Urine pH 6.0 5.0-9.0 Urine Specific [place] 1.032 1.001-1.035 Urine Protein 1+ H Negative Urine Ketones Trace Negative Urine Blood Negative Negative /uL Urine Nitrite 2+ H Negative Urine Bilirubin 2+ H Negative Urine Urobilinogen Over Negative mg/dL Urine Leukocyte Esterase Negative Negative /uL Urine RBC None seen 0 - 4 /hpf Urine Microscopic WBC 7 H 0-5 /HPF Urine Squamous Epithelial Cells Few <5 /hpf Urine Bacteria Many H None Seen /hpf Urine Mucus Few None Seen Urine Glucose Trace Normal mg/dL Urine Opiates Screen Neg NEGATIVE Urine Fentanyl Screen Neg NEGATIVE Urine Barbiturates Screen Neg NEGATIVE Urine Phencyclidine Screen Neg NEGATIVE Urine Amphetamines Screen Neg NEGATIVE Urine Benzodiazepines Screen Neg NEGATIVE Urine Cocaine Screen Neg NEGATIVE Urine Cannabinoids Screen Neg NEGATIVE Assessment/Plan Assessment/Plan Assessment Liver failure Alcohol withdrawal Hypokalemia Hypertension Plan Admit the patient to Med surge to the hospitalist GI consult Alcohol withdrawal protocol Plan discussed with: Patient My Orders Orders - ALFRED PETERSON Procedure Category Date Status Time Propranolol Hcl PHA 05/16/24 In Process Tablet (Inderal 22:00 * Gi Dvh Contract Writer CONS 05/16/24 Transmitted 18:57 Acute Hepatitis Panel LAB 05/16/24 In Process 18:57 Hepatic Diet DIET 05/17/24 Transmitted (50gmpro,2gmna) Breakfast Admit ADMIT 05/16/24 Transmitted 18:57 Temazepam (Restoril) PHA 05/16/24 In Process 19:00 Ondansetron Hcl PHA 05/16/24 In Process (Zofran) 19:00 Comprehensive LAB 05/17/24 Verified Metabolic Panel 04:00 Condition: Stable ZORA 05/16/24 In Process 18:57 Bedrest With Bathroom ZORA 05/16/24 In Process Privileg 18:57 LIVER US 05/16/24 Resulted 20:09 Date of Service: May 16, 2024 Billing Provider: ALFRED PETERSON Common Visit Codes: [id number] INP/OBS CARE (HIGH) ALFRED PETERSON May 16, 2024 21:39
[2024-05-16] MEDS: PROPRANOLOL HCL 20 MG TAB PO SCH (22:06)
[2024-05-16] MEDS: chlordiazePOXIDE HCL 25 MG CAP PO SCH (22:07)
[2024-05-17] VITALS (8 sets, daily range): BP systolic 100–106; BP diastolic 65–74; PULSE 78–107; RESP 14–19; TEMP 97.9–101.3; O2SAT 95–98
[2024-05-17 06:57] LABS: Alanine Aminotransferase 25 U/L (7-40); Anion Gap 8 (5-15); Carbon Dioxide 25 mmol/L (20-31); Chloride 103 mmol/L (98-107); Glucose 85 mg/dL (74-106); Total Protein 6.1 g/dL (5.7-8.2)
[2024-05-17 07:03] LABS: Albumin 2.8 g/dL (3.2-4.8); Alkaline Phosphatase 162 U/L (46-116); Aspartate Aminotransferase 97 U/L (13-40); BUN/Creatinine Ratio 12.5 (10.0-20.0); Bilirubin, Total 4.4 mg/dL (0.2-1.0); Blood Urea Nitrogen < 5 mg/dL (9-23); Calcium 8.4 mg/dL (8.7-10.4); Potassium 3.4 mmol/L (3.5-5.1); Sodium 136 mmol/L (136-145)
[2024-05-17] MEDS ORDERED: FLUO20TA42 PO (07:07)
[2024-05-17] MEDS ORDERED: BENA-36 PO (07:08)
[2024-05-17] MEDS ORDERED: ALPR0.254 PO (07:08)
[2024-05-17] MEDS ORDERED: PHEN1CAP38 PO (07:08)
[2024-05-17] MEDS ORDERED: AMIT100T6 PO (07:09)
[2024-05-17] MEDS ORDERED: HYDR50TA47 PO (07:09)
[2024-05-17] MEDS ORDERED: HYDR-3682 PO (07:10)
[2024-05-17] MEDS ORDERED: ATOR40TA52 PO (07:10)
[2024-05-17] MEDS ORDERED: ALBUAER3 IN (07:11)
[2024-05-17] MEDS ORDERED: LEVO-848 PO (07:11)
[2024-05-17] MEDS ORDERED: ATE50T PO (07:11)
[2024-05-17] MEDS ORDERED: GLIP10TA21 PO (07:12)
[2024-05-17] MEDS ORDERED: CLOB0.05 TOP (07:15)
[2024-05-17] MEDS ORDERED: SECU1INJ3 SC (07:15)
[2024-05-17] MEDS: THIAMINE HCL 100 MG TAB PO SCH (09:27)
[2024-05-17] MEDS: POTASSIUM EFFERVESENT TAB 25 MEQ PO ONE (09:27)
[2024-05-17] MEDS: chlordiazePOXIDE HCL 25 MG CAP PO SCH ×2 (09:27→21:31)
[2024-05-17] MEDS: FOLIC ACID 1 MG TAB PO SCH (09:27)
[2024-05-17 11:32] LABS: Bilirubin, Direct 3.2 mg/dL (<0.3); Phosphorus 1.7 mg/dL (2.4-5.1)
[2024-05-17 12:28] LABS: INR 1.46 (0.9-1.15); Partial Thromboplastin Time 31.8 SEC (24.5-34.5); Prothrombin Time 14.9 sec (9.3-11.8)
--- NOTE | 2024-05-17 12:45 | DVHINCON2 ---
GI Consult Consult Note GI consult note Date of Consultation: 05/17/2024 Chief Complaint: Liver failure Referring Physician: Darrell STANLEY H&P: 33-year-old female presents for evaluation of alcohol withdrawal Patient admits to heavy alcohol for last year and a half, drinking about half a bottle of vodka every day. Patient reports to cutting back on alcohol recently. Patient admits to feeling better today No abdominal pain. No nausea or vomiting. No hematemesis. No EGD or colonoscopy in past Past Medical History: Anxiety Past Surgical History: Denies Social History: NO smoking, heavy drinking ETOH Family History: Noncontributory Review of Systems: Constitutional: no fever, chill, weight loss HEENT: + scleral icterus Heart: no chest pain, no chest pressure Lung: no cough, no dyspnea with exertion Abdomen: see HPI Physical exam: General: NAD, AAOX3 HEENT:+ scleral icterus Chest: lung baer clear to auscultation Heart: RRR, no murmur Abdomen: non-distended, no tenderness to palpation, +BS Labs: Labs Test 05/17/24 11:13 05/17/24 05:46 05/16/24 14:58 05/16/24 13:40 Range/Units Prothrombin Time 14.9 H 9.3-11.8 sec Prothrombin Time INR 1.46 H 0.9-1.15 Activated Partial Thromboplast Time 31.8 24.5-34.5 SEC Sodium Level 136 136-145 mmol/L Potassium Level 3.4 L 3.5-5.1 mmol/L Chloride Level 103 98-107 mmol/L Carbon Dioxide Level 25 20-31 mmol/L Anion Gap 8 5-15 Blood Urea Nitrogen < 5 L 9-23 mg/dL Creatinine 0.40 L 0.550-1.02 mg/dL Glomerular Filtration Rate Calc 134 >90 mL/min BUN/Creatinine Ratio 12.5 10.0-20.0 Serum Glucose 85 74-106 mg/dL Calcium Level 8.4 L 8.7-10.4 mg/dL Phosphorus Level 1.7 L 2.4-5.1 mg/dL Total Bilirubin 4.4 H 0.2-1.0 mg/dL Direct Bilirubin 3.2 H <0.3 mg/dL Aspartate Amino Transferase (AST) 97 H 13-40 U/L Alanine Aminotransferase (ALT) 25 7-40 U/L Alkaline Phosphatase 162 H 46-116 U/L Total Protein 6.1 5.7-8.2 g/dL Albumin 2.8 L 3.2-4.8 g/dL Troponin I High Sensitivity < 3 L </=34 ng/L White Blood Count 10.4 4.4-10.8 10^3/uL Red Blood Count 3.67 L 4.0-5.20 10^6/uL Hemoglobin 13.9 12.2-16.2 g/dL Hematocrit 38.7 36.0-46.0 % Mean Corpuscular Volume 105.4 H 80.0-100.0 fL Mean Corpuscular Hemoglobin 38.0 H 28.0-32.0 pg Mean Corpuscular Hemoglobin Concent 36.0 32.0-36.0 g/dL Red Cell Distribution Width 16.1 H 11.8-14.3 % Platelet Count 263 140-450 10^3/uL Mean Platelet Volume 8.9 6.9-10.8 fL Neutrophils (%) (Auto) 71.6 37.0-80.0 % Lymphocytes (%) (Auto) 17.3 10.0-50.0 % Monocytes (%) (Auto) 7.9 0.0-12.0 % Eosinophils (%) (Auto) 2.4 0.0-7.0 % Basophils (%) (Auto) 0.8 0.0-2.0 % Neutrophils # (Auto) 7.4 1.6-8.6 10 ^3/uL Lymphocytes # (Auto) 1.8 0.4-5.4 10 ^3/uL Monocytes # (Auto) 0.8 0-1.3 10 ^3/uL Eosinophils # (Auto) 0.2 0-0.8 10 ^3/uL Basophils # (Auto) 0.1 0-0.2 10 ^3/uL Nucleated Red Blood Cells 0.1 % B-Type Natriuretic Peptide 16.53 0-100 pg/mL Beta HCG, Quantitative < 1.5 L 1.5-4.2 mIU/mL Plasma/Serum Blood Alcohol 5.0 <10 mg/dL Hepatitis A IgM Antibody Negative Hepatitis B Surface Antigen Negative Negative Hepatitis B Core IgM Antibody Negative Negative Hepatitis C Antibody Negative Negative Test 05/16/24 12:10 Range/Units Urine Color Dark-yellow Yellow Urine Clarity Hazy H Clear Urine pH 6.0 5.0-9.0 Urine Specific [place] 1.032 1.001-1.035 Urine Protein 1+ H Negative Urine Ketones Trace Negative Urine Blood Negative Negative /uL Urine Nitrite 2+ H Negative Urine Bilirubin 2+ H Negative Urine Urobilinogen Over Negative mg/dL Urine Leukocyte Esterase Negative Negative /uL Urine RBC None seen 0 - 4 /hpf Urine Microscopic WBC 7 H 0-5 /HPF Urine Squamous Epithelial Cells Few <5 /hpf Urine Bacteria Many H None Seen /hpf Urine Mucus Few None Seen Urine Glucose Trace Normal mg/dL Urine Opiates Screen Neg NEGATIVE Urine Fentanyl Screen Neg NEGATIVE Urine Barbiturates Screen Neg NEGATIVE Urine Phencyclidine Screen Neg NEGATIVE Urine Amphetamines Screen Neg NEGATIVE Urine Benzodiazepines Screen Neg NEGATIVE Urine Cocaine Screen Neg NEGATIVE Urine Cannabinoids Screen Neg NEGATIVE Imaging: Abdominal ultrasound IMPRESSION: No acute intracranial abnormality identified. Fatty infiltration of the liver. Assessment: Fatty liver Alcohol withdrawal Elevated LFTs Plan: Discussed with Dr. Pacheco Monitor labs Check PT INR, ammonia DC alcohol discussed extensively Alcohol withdrawal per protocol We will continue to monitor the patient Thank you for this consult Date of Service: May 17, 2024 Billing Provider: LUZ VALERA Common Visit Codes: CONSULT ONLY Consultation Codes: [id number] CONSULT <45MIN LUZ VALERA May 17, 2024 12:45
--- NOTE | 2024-05-17 15:52 | DVHPNRES ---
Progress Note Date Seen: May 17, 2024 Resident Creating Document: JHLisethJANDREA WatersMARISELAMELBA RESIDENT Medical Necessity Reason Pt with a Central, PICC or Fol: No Subjective Review of Systems Patient is a 33-year-old female with a past medical history of psoriasis came to the ED with a chief complaint of yellowness of eyes noticed since the past 3 days. Patient reported that she was apparently doing well until about 3 days ago when she noticed yellowness in her eyes. Patient denied abdominal pain, itching, pale stool, confusion. Patient did report having dark urine. Patient denied history of liver cirrhosis, blood in vomiting or blood in stool. Patient reports that she has been drinking alcohol for a long time about half bottle of vodka every day. Denies use of other illegal drugs, smoking, cannabis use. Patient denied any history of IV drug use. Patient reports to be in a relationship with a couple of partners in the past and had unprotected sex, reports that she tested negative for hepatitis about an year ago. Patient does not report of a similar episode of yellowness of eyes or skin in the past. Patient reports having bowel movement every 3 days and take stool softeners. Past medical history: Psoriasis Past surgical history: None Social history: Lives with the family and drinks half bottle of vodka daily, denies smoking, other illegal drug use Medications: Cosentyx ( secukinumab ) for psoarisis Review of systems Patient seen and examined at bedside Does not report of any acute abdominal pain, dysuria, fever, diarrhea, nausea, vomiting, itching Does not have headache, anxiety, agitation, photophobia, auditory or visual hallucinations Objective vital signs Vital Sign Date Time Temp Pulse Resp B/P (MAP) Pulse Ox O2 Delivery O2 Flow Rate FiO2 05/17/24 12:56 99.3 96 19 101/67 (78) 98 99.3 05/17/24 08:00 Room Air* 0 21 Total Intake and Output 05/16/24 05/16/24 05/17/24 15:00 23:00 07:00 Intake Total 1000 ml 100 ml 200 ml Balance 1000 ml 100 ml 200 ml medications Current Medications Medications Dose Ordered Sig/Ana Route Start Time Stop Time Status Last Admin Dose Admin Propranolol HCl 20 mg BID PO 05/16/24 22:00 05/16/24 22:06 20 MG Temazepam 15 mg QHSP PRN PO 05/16/24 19:00 Ondansetron HCl 4 mg Q4HP PRN IV 05/16/24 19:00 Thiamine HCl 100 mg DAILY PO 05/17/24 10:00 05/17/24 09:27 100 MG Folic Acid 1 mg DAILY PO 05/17/24 10:00 05/17/24 09:27 1 MG Chlordiazepoxide HCl 50 mg Q12HR PO 05/17/24 10:00 05/17/24 22:01 05/17/24 09:27 50 MG Chlordiazepoxide HCl 25 mg Q12HR PO 05/18/24 10:00 05/18/24 22:01 Chlordiazepoxide HCl 25 mg QAM PO 05/19/24 07:00 05/19/24 07:01 Examination Constitutional: Patient was alert and oriented to time, place and person and does not appear to be in any acute distress Gen - no pallor, bilateral scleral icterus present, no cyanosis, no clubbing, no LAD, no edema . Skin - Patients skin is warm and dry.. HEENT - normocephalic, atraumatic, moist mucous membranes. Neck - full ROM, no LAD, no JVD. Pulmonary - B/L equal air entry. no crackles , no wheezing, no stridor. cardiovascular - normal S1,S2 heard. no murmurs heard. peripheral pulses normal radial 2+, pedal 2+. capillary refill normal <2 secs. GI - soft abdomen without tenderness to palpation. no hepatospleenomegaly. Bowel sounds normoactive Neurological - Bilateral upper extremity strength 5/5, bilateral lower extremity strength 5/5, no facial droop, normal speech, no tremor, no sensory deficiets. laboratory and microbiology Laboratory Tests 05/17/24 05:46 05/16/24 13:40 Test 05/17/24 05:46 Range/Units Serum Glucose 85 74-106 mg/dL Problem List/Assessment/Plan Problem List/Assessment/Plan # hepatitis likely alcohol-induced # jaundice # hepatic steatosis # hyperbilirubinemia - total bilirubin 4.4, direct 3.2, indirect 1.2 - AST:ALT > 2:1, trending down - low albumin - INR 1.46 - liver ultrasound- mildly enlarged 17.5 cm and diffuse increased echogenicity consistent with fatty infiltration - stool occult blood negative - hepatitis panel negative - MELD Na score - 19 ( estimated 90 day mortality 3-4%) - patient advised to discontinue alcohol use and was discussed about the resources but the patient said she can quit on her own - monitoring labs # Alcohol withdrawal - CIWA score less than 8 - on chlordiazepoxide - monitor vitals and symptoms # hypokalemia # hypophosphatemia - replenished # macrocytosis, hyperchromia - given folic acid and vitamin B12 # history of psoriasis Continue home medication Cosentyx Follow the PCP/Rheumatology physician Goals of care discussed with the patient for over 25 minutes. Full code Plan discussed with Dr. Verduzco Plan discussed with: Patient My Orders My Orders Orders - HAILEE QUIJANO Procedure Category Date Status Time Urine Bacterial BARBARA 05/17/24 Logged Culture 11:05 Date of Service: May 17, 2024 Billing Provider: REINIER VERDUZCO MD Common Visit Codes: [id number] INP/OBS CARE(HIGH) HAILEE QUIJANO RESIDENT May 17, 2024 15:52 REINIER VERDUZCO MD May 24, 2024 14:32
[2024-05-17] MEDS: FOLIC ACID 1 MG in D5W 5% 50 ML INJ ONE (18:13)
[2024-05-17] MEDS: THIAMINE 100mg/ml INJ (200mg/2ml VIAL) IV ONE (18:14)
[2024-05-17] MEDS: CYANOCOBALAMIN (B-12) 1000 MCG/1 ML VIAL IM ONE (18:14)
[2024-05-17] MEDS: NEUTRA-PHOS TABLET PO SCH (18:14)
[2024-05-18] VITALS (8 sets, daily range): BP systolic 96–103; BP diastolic 58–72; PULSE 62–103; RESP 16–20; TEMP 98.1–98.4; O2SAT 94–99
[2024-05-18 06:44] LABS: Basophils # (auto) 0.1 10 ^3/uL (0-0.2); Basophils % (auto) 0.7 % (0.0-2.0); Hemoglobin 11.8 g/dL (12.2-16.2); Lymphocytes # (auto) 2.2 10 ^3/uL (0.4-5.4); Monocytes # (auto) 1.1 10 ^3/uL (0-1.3)
[2024-05-18 06:45] LABS: Alanine Aminotransferase 30 U/L (7-40); Anion Gap 7 (5-15); Calcium 8.8 mg/dL (8.7-10.4); Carbon Dioxide 27 mmol/L (20-31); Chloride 103 mmol/L (98-107); Glucose 84 mg/dL (74-106); Sodium 137 mmol/L (136-145); Total Protein 6.4 g/dL (5.7-8.2)
[2024-05-18 06:47] LABS: Eosinophils # (auto) 0.4 10 ^3/uL (0-0.8); Eosinophils % (auto) 4.3 % (0.0-7.0); Hematocrit 34.8 % (36.0-46.0); Lymphocytes % (auto) 23.9 % (10.0-50.0); Mean Corpuscular Hemoglobin 36.4 pg (28.0-32.0); Neutrophils # (auto) 5.6 10 ^3/uL (1.6-8.6); Neutrophils % (auto) 59.1 % (37.0-80.0); Nucleated Red Blood Cells % 0.1 %; Platelet Count (auto) 215 10^3/uL (140-450); Red Blood Cells 3.25 10^6/uL (4.0-5.20); Red Cell Distribution Width 16.4 % (11.8-14.3); White Blood Cell 9.4 10^3/uL (4.4-10.8)
[2024-05-18 06:49] LABS: Alkaline Phosphatase 176 U/L (46-116); Aspartate Aminotransferase 100 U/L (13-40); BUN/Creatinine Ratio 9.1 (10.0-20.0); Bilirubin, Total 4.5 mg/dL (0.2-1.0); Blood Urea Nitrogen < 5 mg/dL (9-23); Magnesium 1.5 mg/dL (1.6-2.6); Phosphorus 2.2 mg/dL (2.4-5.1); Potassium 3.4 mmol/L (3.5-5.1)
[2024-05-18] MEDS: POTASSIUM EFFERVESENT TAB 25 MEQ PO ONE (09:15)
[2024-05-18] MEDS: MAGNESIUM SULFATE 1GM/100ML 100 ML IV ONE (09:15)
[2024-05-18] MEDS ORDERED: chlordiazePOXIDE HCL 25 MG CAP PO SCH (10:00)
--- NOTE | 2024-05-18 11:17 | DVHPN2 ---
Progress Note Date Seen: May 18, 2024 Resident Creating Document: CONRADO THOMPSON RESIDENT Medical Necessity Reason Pt with a Central, PICC or Fol: No Subjective Review of Systems Patient seen and examined at bedside Denies any active ongoing abdominal pain, denies any nausea or vomiting Notes last bowel movement was 4-5 days ago, soft Reports feeling better than yesterday Objective vital signs Vital Sign Date Time Temp Pulse Resp B/P (MAP) Pulse Ox O2 Delivery O2 Flow Rate FiO2 05/18/24 09:00 98.4 97 17 98/58 (71) 94 98.4 05/18/24 08:00 Room Air* 0 21 Total Intake and Output 05/17/24 05/17/24 05/18/24 15:00 23:00 07:00 Intake Total 563 ml 1450.2 ml 400 ml Balance 563 ml 1450.2 ml 400 ml medications Current Medications Medications Dose Ordered Sig/Ana Route Start Time Stop Time Status Last Admin Dose Admin Ondansetron HCl 4 mg Q4HP PRN IV 05/16/24 19:00 Thiamine HCl 100 mg DAILY PO 05/17/24 10:00 05/18/24 09:02 100 MG Folic Acid 1 mg DAILY PO 05/17/24 10:00 05/18/24 09:02 1 MG Sodium Phosphate 1 tab TIDWM PO 05/17/24 18:00 05/18/24 09:54 1 TAB Chlordiazepoxide HCl 25 mg BID PO 05/17/24 22:00 05/18/24 09:02 25 MG Piperacillin Sod/ Tazobactam Sod 100 ml @ 25 mls/hr Q8HR IV 05/18/24 14:00 Examination Constitutional: Patient was alert and oriented to time, place and person and does not appear to be in any acute distress Gen - no pallor, bilateral scleral icterus present, no cyanosis, no clubbing, no LAD, no edema . Skin - Patients skin is warm and dry.. HEENT - normocephalic, atraumatic, moist mucous membranes. Neck - full ROM, no LAD, no JVD. Pulmonary - B/L equal air entry. no crackles , no wheezing, no stridor. cardiovascular - normal S1,S2 heard. no murmurs heard. peripheral pulses normal radial 2+, pedal 2+. capillary refill normal <2 secs. GI - soft abdomen without tenderness to palpation. no hepatospleenomegaly. Bowel sounds normoactive Neurological - Bilateral upper extremity strength 5/5, bilateral lower extremity strength 5/5, no facial droop, normal speech, no tremor, no sensory deficiets. laboratory and microbiology Laboratory Tests 05/18/24 05:51 Test 05/18/24 05:51 Range/Units Serum Glucose 84 74-106 mg/dL Labs and/or images reviewed: Labs reviewed by me, Image(s) reviewed by me Problem List/Assessment/Plan Problem List/Assessment/Plan Alcoholic hepatitis; Michela discriminant function 22.4 Hepatic steatosis Alcohol withdrawal S/p cystic adnexal mass removal Acute complicated UTI Constipation Plan: MiraLax once Colace Q daily Ordered complete abdominal ultrasound Consider CT abdomen pelvis Ordered urine culture Awaiting MRCP results Plan discussed with Dr. Pacheco Plan discussed with: Patient, Other (mother, RN) Dietary Evaluation Review Comments: 1. Recommend liberalizing to Regular diet - based on updated ASPEN/ESPEN guidelines, protein restriction may lead to worsening nutritional status and is not advised in acute liver failure or cirrhosis 2. Encourage continued good oral intakes >75% of meals 3. Continue to monitor weights while inpatient Expected Outcomes/Goals: Improved nutritional status, weight maintenance, improved nutrient utilization. CONRADO THOMPSON RESIDENT May 18, 2024 11:17
[2024-05-18] MEDS: SODIUM CHLORIDE 0.9% 1,000 ML IV ONE (12:44)
[2024-05-18] MEDS: PIPERACILLIN-TAZOB 3.375GM 100 ML IV SCH (14:17)
--- NOTE | 2024-05-18 14:47 | DVH ---
MRI MRCP MRI HISTORY: pancreatic mass cholangitis,elevated bilirubin, weightloss COMPARISON: 05/16/24 PROCEDURE: Multiplanar multisequence MRI images were obtained of the abdomen without intravenous cont rast Additional MIPS were obtained of the biliary system. FINDINGS: Bile ducts: -Intrahepatic ducts: Non-dilated. -Extrahepatic ducts: Non-dilated. -Common bile duct: Non-dilated. -Filling defects: No filling defects -Stricture: None. Gallbladder: Multiple gallstones with sludge. Trace pericholecystic fluid. Pancreas: Pancreatic duct: No ductal dilatation. Lesions: None. Liver: Signal intensity: Homogenous. Contour: Smooth. Size: Enlarged Lesions: No focal liver lesion. ADDITIONAL FINDINGS: Lung base: Normal. Pancreas: 8 mm cyst at the tail of the pancreas could be a tiny pseudocyst. Spleen:Normal. Bowel: Normal. Adrenal glands:Normal. Kidneys and ureters:Normal. Lymph nodes:Normal. Peritoneum:Normal. Vessels: Normal. Abdominal wall: Normal. Bone: No aggressive bone lesions IMPRESSION: Multiple gallstones with sludge. Trace pericholecystic fluid is seen and could be seen with cholecyst itis. Clinical correlation recommended. If there is concern, consider HIDA scan. Hepatic steatosis. 8 mm cyst at the tail of the pancreas could be a tiny pseudocyst.
[2024-05-18] MEDS ORDERED: DOCUSATE SOD 100 MG CAP PO PRN (16:15)
[2024-05-18] MEDS: POLYETHYLENE GLYCOL 17 GM PWDR PO ONE (18:41)
--- NOTE | 2024-05-18 20:23 | DVHPNRES ---
Progress Note Date Seen: May 18, 2024 Resident Creating Document: SELENA QUIJANOLEIGHTON RESIDENT Medical Necessity Reason Pt with a Central, PICC or Fol: No Subjective Review of Systems Patient seen and examined at bedside Does not report of any acute abdominal pain, dysuria, fever, diarrhea, nausea, vomiting, itching Does not have headache, anxiety, agitation, photophobia, auditory or visual hallucinations Objective vital signs Vital Sign Date Time Temp Pulse Resp B/P (MAP) Pulse Ox O2 Delivery O2 Flow Rate FiO2 05/18/24 17:00 98.4 62 18 96/63 (74) 95 98.4 05/18/24 08:00 Room Air* 0 21 Total Intake and Output 05/17/24 05/17/24 05/18/24 15:00 23:00 07:00 Intake Total 563 ml 1450.2 ml 400 ml Balance 563 ml 1450.2 ml 400 ml medications Current Medications Medications Dose Ordered Sig/Ana Route Start Time Stop Time Status Last Admin Dose Admin Ondansetron HCl 4 mg Q4HP PRN IV 05/16/24 19:00 Thiamine HCl 100 mg DAILY PO 05/17/24 10:00 05/18/24 09:02 100 MG Folic Acid 1 mg DAILY PO 05/17/24 10:00 05/18/24 09:02 1 MG Sodium Phosphate 1 tab TIDWM PO 05/17/24 18:00 05/18/24 18:41 1 TAB Chlordiazepoxide HCl 25 mg BID PO 05/17/24 22:00 05/18/24 09:02 25 MG Piperacillin Sod/ Tazobactam Sod 100 ml @ 25 mls/hr Q8HR IV 05/18/24 14:00 05/18/24 14:17 25 MLS/HR Docusate Sodium 100 mg DAILYPRN PRN PO 05/18/24 16:15 Examination Constitutional: Patient was alert and oriented to time, place and person and does not appear to be in any acute distress Gen - no pallor, bilateral scleral icterus present, no cyanosis, no clubbing, no LAD, no edema . Skin - Patients skin is warm and dry.. HEENT - normocephalic, atraumatic, moist mucous membranes. Neck - full ROM, no LAD, no JVD. Pulmonary - B/L equal air entry. no crackles , no wheezing, no stridor. cardiovascular - normal S1,S2 heard. no murmurs heard. peripheral pulses normal radial 2+, pedal 2+. capillary refill normal <2 secs. GI - soft abdomen without tenderness to palpation. no hepatospleenomegaly. Bowel sounds normoactive Neurological - Bilateral upper extremity strength 5/5, bilateral lower extremity strength 5/5, no facial droop, normal speech, no tremor, no sensory deficiets. laboratory and microbiology Laboratory Tests 05/18/24 05:51 Test 05/18/24 05:51 Range/Units Serum Glucose 84 74-106 mg/dL Problem List/Assessment/Plan Problem List/Assessment/Plan # hepatitis likely alcohol-induced # jaundice # hepatic steatosis # hyperbilirubinemia - total bilirubin 4.4, direct 3.2, indirect 1.2 - AST:ALT > 2:1, trending down - low albumin - INR 1.46 - liver ultrasound- mildly enlarged 17.5 cm and diffuse increased echogenicity consistent with fatty infiltration - stool occult blood negative - hepatitis panel negative - MELD Na score - 19 ( estimated 90 day mortality 3-4%) - patient advised to discontinue alcohol use and was discussed about the resources but the patient said she can quit on her own - 05/18- overnight patient had fevers up to 101 degree F, total bilirubin increased from 4.4->4.5 with increase in the direct bilirubin from 3.2-> 3.6. Patient reported 50 lb weight loss in the last 3 months Suspected acute cholangitis/obstruction in the biliary system, MRCP was ordered which showed multiple gallstones with sludge, trace pericholecystic fluid, hepatic steatosis, 8 mm cyst of the tail of the pancreas which could be tiny pseudocyst CA 19 9 pending. Given the history of psoriasis, Anca panel pending to rule out sclerosing cholangitis. # Alcohol withdrawal - CIWA score less than 8 - on chlordiazepoxide - monitor vitals and symptoms # hypokalemia # hypophosphatemia # hypomagnesemia - replenished # status post surgical resection of adnexal mass in 2019 # macrocytosis, hyperchromia - given folic acid and vitamin B12 # history of psoriasis Continue home medication Cosentyx Follow the PCP/Rheumatology physician Goals of care discussed with the patient for over 25 minutes. Full code Plan discussed with Dr. Kam Plan discussed with: Patient My Orders My Orders Orders - HAILEE QUIJANO Procedure Category Date Status Time Blood Culture BARBARA 05/18/24 Uncollected 10:25 Piperacillin-Tazob PHA 05/18/24 In Process 3.375gm (Zosyn 3.375g 14:00 Anca Panel LAB 05/18/24 In Process 11:03 Mrcp Mri MRI 05/18/24 Resulted 13:20 Carbohydrate Antigen LAB 05/18/24 In Process 19-9 Dietary Evaluation Review Comments: 1. Recommend liberalizing to Regular diet - based on updated ASPEN/ESPEN guidelines, protein restriction may lead to worsening nutritional status and is not advised in acute liver failure or cirrhosis 2. Encourage continued good oral intakes >75% of meals 3. Continue to monitor weights while inpatient Expected Outcomes/Goals: Improved nutritional status, weight maintenance, improved nutrient utilization. Date of Service: May 18, 2024 Billing Provider: REINIER VERDUZCO MD Common Visit Codes: [id number] INP/OBS CARE(HIGH) HAILEE QUIAJNO RESIDENT May 18, 2024 20:23 REINIER VERDUZCO MD May 24, 2024 15:14
[2024-05-18] MEDS: SENNA 8.6 MG TAB PO SCH (22:27)
[2024-05-19] VITALS (8 sets, daily range): BP systolic 91–103; BP diastolic 54–70; PULSE 87–98; RESP 18–19; TEMP 97.6–99.7; O2SAT 95–98
[2024-05-19 06:49] LABS: Basophils # (auto) 0 10 ^3/uL (0-0.2); Eosinophils # (auto) 0.4 10 ^3/uL (0-0.8); Lymphocytes # (auto) 2.1 10 ^3/uL (0.4-5.4); Monocytes # (auto) 1.1 10 ^3/uL (0-1.3); Red Blood Cells 3.02 10^6/uL (4.0-5.20); White Blood Cell 9.4 10^3/uL (4.4-10.8)
[2024-05-19 06:51] LABS: Basophils % (auto) 0.5 % (0.0-2.0); Eosinophils % (auto) 4.3 % (0.0-7.0); Hematocrit 32.1 % (36.0-46.0); Hemoglobin 11.2 g/dL (12.2-16.2); Lymphocytes % (auto) 22.2 % (10.0-50.0); Mean Corpuscular Hgb Conc. 34.8 g/dL (32.0-36.0); Mean Corpuscular Volume 106.4 fL (80.0-100.0); Monocytes % (auto) 11.4 % (0.0-12.0); Neutrophils # (auto) 5.8 10 ^3/uL (1.6-8.6); Neutrophils % (auto) 61.6 % (37.0-80.0); Platelet Count (auto) 206 10^3/uL (140-450); Red Cell Distribution Width 16.6 % (11.8-14.3)
[2024-05-19] MEDS ORDERED: chlordiazePOXIDE HCL 25 MG CAP PO SCH (07:00)
[2024-05-19 07:04] LABS: Alanine Aminotransferase 22 U/L (7-40); Anion Gap 8 (5-15); Carbon Dioxide 26 mmol/L (20-31); Chloride 105 mmol/L (98-107); Glucose 84 mg/dL (74-106); Magnesium 1.8 mg/dL (1.6-2.6); Sodium 139 mmol/L (136-145); Total Protein 5.9 g/dL (5.7-8.2)
[2024-05-19 07:05] LABS: Phosphorus 3.5 mg/dL (2.4-5.1)
[2024-05-19 07:08] LABS: Albumin 2.7 g/dL (3.2-4.8); Alkaline Phosphatase 156 U/L (46-116); Aspartate Aminotransferase 81 U/L (13-40); BUN/Creatinine Ratio 9.4 (10.0-20.0); Blood Urea Nitrogen < 5 mg/dL (9-23); Calcium 8.6 mg/dL (8.7-10.4); Potassium 3.5 mmol/L (3.5-5.1)
[2024-05-19] MEDS: IOHEXOL 300 MG/ML 100ML BOTTLE IJ ONE (12:31)
[2024-05-19] MEDS: SODIUM CHLORIDE 0.9% 500 ML IV ONE (13:57)
--- NOTE | 2024-05-19 14:01 | DVHPN2 ---
Progress Note Date Seen: May 19, 2024 Resident Creating Document: CONRADO THOMPSON RESIDENT Medical Necessity Reason Pt with a Central, PICC or Fol: No Subjective Review of Systems Patient seen and examined at bedside Denies any active ongoing abdominal pain, denies any nausea or vomiting Notes last bowel movement was 4-5 days ago, soft Reports feeling better than yesterday Objective vital signs Vital Sign Date Time Temp Pulse Resp B/P (MAP) Pulse Ox O2 Delivery O2 Flow Rate FiO2 05/19/24 09:00 98.3 92 18 95/62 (73) 95 98.3 05/19/24 08:00 Room Air* 0 21 Total Intake and Output 05/18/24 05/18/24 05/19/24 15:00 23:00 07:00 Intake Total 1400 ml 850 ml 500 ml Balance 1400 ml 850 ml 500 ml medications Current Medications Medications Dose Ordered Sig/Ana Route Start Time Stop Time Status Last Admin Dose Admin Ondansetron HCl 4 mg Q4HP PRN IV 05/16/24 19:00 Thiamine HCl 100 mg DAILY PO 05/17/24 10:00 05/19/24 09:11 100 MG Folic Acid 1 mg DAILY PO 05/17/24 10:00 05/19/24 09:12 1 MG Sodium Phosphate 1 tab TIDWM PO 05/17/24 18:00 05/19/24 13:54 1 TAB Piperacillin Sod/ Tazobactam Sod 100 ml @ 25 mls/hr Q8HR IV 05/18/24 14:00 05/19/24 13:54 25 MLS/HR Sennosides 17.2 mg HS PO 05/18/24 22:00 05/18/24 22:27 17.2 MG Examination Constitutional: Patient was alert and oriented to time, place and person and does not appear to be in any acute distress Gen - no pallor, bilateral scleral icterus present, no cyanosis, no clubbing, no LAD, no edema . Skin - Patients skin is warm and dry.. HEENT - normocephalic, atraumatic, moist mucous membranes. Neck - full ROM, no LAD, no JVD. Pulmonary - B/L equal air entry. no crackles , no wheezing, no stridor. cardiovascular - normal S1,S2 heard. no murmurs heard. peripheral pulses normal radial 2+, pedal 2+. capillary refill normal <2 secs. GI - soft abdomen without tenderness to palpation. no hepatospleenomegaly. Bowel sounds normoactive Neurological - Bilateral upper extremity strength 5/5, bilateral lower extremity strength 5/5, no facial droop, normal speech, no tremor, no sensory deficiets. laboratory and microbiology Laboratory Tests 05/19/24 05:36 Test 05/19/24 05:36 Range/Units Serum Glucose 84 74-106 mg/dL Microbiology Date/Time Source Procedure Growth Status 05/18/24 19:20 Voided Urine Urine Culture - Preliminary Resulted Labs and/or images reviewed: Labs reviewed by me, Image(s) reviewed by me Problem List/Assessment/Plan Problem List/Assessment/Plan Alcoholic hepatitis; Michela discriminant function 22.4 Hepatic steatosis Cholestasis Pancreatic cyst on ultrasound Elevated CA 19 9 Steatohepatitis Gallstones without cholecystitis Alcohol withdrawal S/p cystic adnexal mass removal Acute complicated UTI Constipation Plan: MiraLax once Colace Q daily Ordered complete abdominal ultrasound Completed CT abdomen pelvis: Hepatic steatosis and hepatomegaly. Severe diffuse colonic bowel wall thickening probably related to infectious or inflammatory colitis. Ordered urine culture Recommend EUS evaluation Plan discussed with Dr. Pacheco Plan discussed with: Patient, Other (RN) My Orders My Orders Orders - CONRADO THOMPSON RESIDENT Procedure Category Date Status Time Urine Bacterial BARBARA 05/18/24 In Process Culture 16:07 Dietary Evaluation Review Comments: 1. Recommend liberalizing to Regular diet - based on updated ASPEN/ESPEN guidelines, protein restriction may lead to worsening nutritional status and is not advised in acute liver failure or cirrhosis 2. Encourage continued good oral intakes >75% of meals 3. Continue to monitor weights while inpatient Expected Outcomes/Goals: Improved nutritional status, weight maintenance, improved nutrient utilization. CONRADO THOMPSON RESIDENT May 19, 2024 14:01
--- NOTE | 2024-05-19 14:16 | DVH ---
Exam: CT CT AB PEL WITH IV CON ONLY History: suspected pancreatic mass, elevated CA19-9, biliary tract m COMPARISON: 08/28/2021 Technique: Multidetector spiral CT of the abdomen and pelvis was performed from lung bases to pubic s ymphysis. Intravenous contrast was administered during this examination. Portal venous imaging was o btained. Axial, coronal and sagittal multiplanar reformats were performed by the technologist on a [employer] workstation. Radiation Dose : 1. Abdomen/Pelvis: CTDIvol 8.53mGy, DLP 523.72 mGy*cm. Findings: Lung Bases: Cardiomegaly. Dependent atelectasis. Liver: Hepatic steatosis and hepatomegaly. Gallbladder and Biliary Tree: Unremarkable Spleen: Unremarkable Pancreas: The pancreas is normal in appearance without focal lesions or abnormal enhancement. Adrenal Glands: Unremarkable Kidneys: No hydronephrosis. Bladder: Unremarkable Bowel: The stomach is grossly normal in appearance. Severe diffuse colonic bowel wall thickening. The appendix is not visualized; however, no secondary findings of acute appendicitis identified. Ascites: Absent Lymphadenopathy: No mesenteric, retroperitoneal or periportal lymphadenopathy. Abdominal Wall and Mesentery: Unremarkable. Vasculature: The visualized abdominal aorta is normal in size and caliber. Abdominal and pelvic vess els demonstrate normal enhancement. Pelvic Organs: Unremarkable Musculoskeletal: No aggressive focal bony lesions, acute fractures or dislocation. IMPRESSION: Hepatic steatosis and hepatomegaly. Severe diffuse colonic bowel wall thickening possibly related to infectious or inflammatory colitis. Pancreas is unremarkable. Radiation optimization: All CT scans at this facility use at least one of these dose optimization genoveva hniques: automated exposure control mA and/or kV adjustment per patient size (includes targeted exam s where dose is matched to clinical indication) or iterative reconstruction.
--- NOTE | 2024-05-19 19:27 | DVHPNRES ---
Progress Note Date Seen: May 19, 2024 Resident Creating Document: SELENA QUIJANOLEIGHTON RESIDENT Medical Necessity Reason Pt with a Central, PICC or Fol: No Subjective Review of Systems Patient seen and examined at bedside Does not report of any acute abdominal pain, dysuria, fever, diarrhea, nausea, vomiting, itching Does not have headache, anxiety, agitation, photophobia, auditory or visual hallucinations Objective vital signs Vital Sign Date Time Temp Pulse Resp B/P (MAP) Pulse Ox O2 Delivery O2 Flow Rate FiO2 05/19/24 17:00 98.4 94 18 91/54 (66) 97 98.4 05/19/24 08:00 Room Air* 0 21 Total Intake and Output 05/18/24 05/18/24 05/19/24 15:00 23:00 07:00 Intake Total 1400 ml 850 ml 500 ml Balance 1400 ml 850 ml 500 ml medications Current Medications Medications Dose Ordered Sig/Ana Route Start Time Stop Time Status Last Admin Dose Admin Ondansetron HCl 4 mg Q4HP PRN IV 05/16/24 19:00 Thiamine HCl 100 mg DAILY PO 05/17/24 10:00 05/19/24 09:11 100 MG Folic Acid 1 mg DAILY PO 05/17/24 10:00 05/19/24 09:12 1 MG Sodium Phosphate 1 tab TIDWM PO 05/17/24 18:00 05/19/24 18:27 1 TAB Piperacillin Sod/ Tazobactam Sod 100 ml @ 25 mls/hr Q8HR IV 05/18/24 14:00 05/19/24 13:54 25 MLS/HR Sennosides 17.2 mg HS PO 05/18/24 22:00 05/18/24 22:27 17.2 MG Examination Constitutional: Patient was alert and oriented to time, place and person and does not appear to be in any acute distress Gen - no pallor, bilateral scleral icterus present, no cyanosis, no clubbing, no LAD, no edema . Skin - Patients skin is warm and dry.. HEENT - normocephalic, atraumatic, moist mucous membranes. Neck - full ROM, no LAD, no JVD. Pulmonary - B/L equal air entry. no crackles , no wheezing, no stridor. cardiovascular - normal S1,S2 heard. no murmurs heard. peripheral pulses normal radial 2+, pedal 2+. capillary refill normal <2 secs. GI - soft abdomen without tenderness to palpation. no hepatospleenomegaly. Bowel sounds normoactive Neurological - Bilateral upper extremity strength 5/5, bilateral lower extremity strength 5/5, no facial droop, normal speech, no tremor, no sensory deficiets. laboratory and microbiology Laboratory Tests 05/19/24 05:36 Test 05/19/24 05:36 Range/Units Serum Glucose 84 74-106 mg/dL Microbiology Date/Time Source Procedure Growth Status 05/18/24 19:20 Voided Urine Urine Culture - Preliminary Resulted Problem List/Assessment/Plan Problem List/Assessment/Plan # hepatitis likely alcohol-induced # jaundice # hepatic steatosis # hyperbilirubinemia - total bilirubin 4.4, direct 3.2, indirect 1.2 - AST:ALT > 2:1, trending down - low albumin - INR 1.46 - liver ultrasound- mildly enlarged 17.5 cm and diffuse increased echogenicity consistent with fatty infiltration - stool occult blood negative - hepatitis panel negative - MELD Na score - 19 ( estimated 90 day mortality 3-4%) - patient advised to discontinue alcohol use and was discussed about the resources but the patient said she can quit on her own - 05/18- overnight patient had fevers up to 101 degree F, total bilirubin increased from 4.4->4.5 with increase in the direct bilirubin from 3.2-> 3.6. Patient reported 50 lb weight loss in the last 3 months Suspected acute cholangitis/obstruction in the biliary system, MRCP was ordered which showed multiple gallstones with sludge, trace pericholecystic fluid, hepatic steatosis, 8 mm cyst of the tail of the pancreas which could be tiny pseudocyst CA 19 9 pending. Given the history of psoriasis, Anca panel pending to rule out sclerosing cholangitis. - 05/19- overnight patient related no acute complaints but had mild fever of 99.7 F. CA19-9 is elevated at 576. CT abdomen pelvis with IV contrast was done which showed Hepatic steatosis and hepatomegaly. Severe diffuse colonic bowel wall thickening possibly related to infectious or inflammatory colitis. Pancreas is unremarkable stool cultures ordered # Alcohol withdrawal - CIWA score less than 8 - on chlordiazepoxide - monitor vitals and symptoms # hypokalemia # hypophosphatemia # hypomagnesemia - replenished # status post surgical resection of adnexal mass in 2020 # macrocytosis, hyperchromia - given folic acid and vitamin B12 # history of psoriasis Continue home medication Cosentyx Follow the PCP/Rheumatology physician Goals of care discussed with the patient for over 25 minutes. Full code Plan discussed with Dr. Verduzco Plan discussed with: Patient My Orders My Orders Orders - HAILEE QUIJANO Procedure Category Date Status Time Senna Pod Tablet PHA 05/18/24 In Process (Senokot Tablet) 22:00 Blood Culture BARBARA 05/18/24 In Process 21:01 Ct Ab Pel With Iv Con CT 05/19/24 Transmitted Only 12:58 Ct Ab Pel With Iv Con CT 05/19/24 Resulted Only 15:00 Dietary Evaluation Review Comments: 1. Recommend liberalizing to Regular diet - based on updated ASPEN/ESPEN guidelines, protein restriction may lead to worsening nutritional status and is not advised in acute liver failure or cirrhosis 2. Encourage continued good oral intakes >75% of meals 3. Continue to monitor weights while inpatient Expected Outcomes/Goals: Improved nutritional status, weight maintenance, improved nutrient utilization. Date of Service: May 19, 2024 Billing Provider: REINIER VERDUZCO MD Common Visit Codes: [id number] INP/OBS CARE(HIGH) HAILEE QUIJANO RESIDENT May 19, 2024 19:27 REINIER VERDUZCO MD May 24, 2024 15:39
[2024-05-20 01:00] VITALS: BP 92/53; PULSE 74; RESP 20; TEMP 99; O2SAT 94
[2024-05-20 05:00] VITALS: BP 100/62; PULSE 65; RESP 18; TEMP 98; O2SAT 93
[2024-05-20 05:57] LABS: Basophils # (auto) 0.1 10 ^3/uL (0-0.2); Hemoglobin 11.6 g/dL (12.2-16.2)
[2024-05-20 06:00] LABS: Basophils % (auto) 0.6 % (0.0-2.0); Eosinophils # (auto) 0.4 10 ^3/uL (0-0.8); Eosinophils % (auto) 3.6 % (0.0-7.0); Hematocrit 33.3 % (36.0-46.0); Lymphocytes # (auto) 1.7 10 ^3/uL (0.4-5.4); Lymphocytes % (auto) 16.6 % (10.0-50.0); Mean Corpuscular Hgb Conc. 34.7 g/dL (32.0-36.0); Mean Corpuscular Volume 106.6 fL (80.0-100.0); Monocytes % (auto) 10.1 % (0.0-12.0); Neutrophils # (auto) 7.1 10 ^3/uL (1.6-8.6); Neutrophils % (auto) 69.1 % (37.0-80.0); Platelet Count (auto) 240 10^3/uL (140-450); Red Blood Cells 3.12 10^6/uL (4.0-5.20); White Blood Cell 10.2 10^3/uL (4.4-10.8)
[2024-05-20 06:14] LABS: Alanine Aminotransferase 21 U/L (7-40); Anion Gap 7 (5-15); Carbon Dioxide 25 mmol/L (20-31); Chloride 104 mmol/L (98-107); Glucose 95 mg/dL (74-106); Sodium 136 mmol/L (136-145)
[2024-05-20 06:33] LABS: Albumin 2.7 g/dL (3.2-4.8); Alkaline Phosphatase 154 U/L (46-116); Aspartate Aminotransferase 82 U/L (13-40); BUN/Creatinine Ratio 10.2 (10.0-20.0); Bilirubin, Total 6.5 mg/dL (0.2-1.0); Blood Urea Nitrogen < 5 mg/dL (9-23); Calcium 8.4 mg/dL (8.7-10.4); Potassium 3.3 mmol/L (3.5-5.1)
[2024-05-20 08:00] VITALS: PULSE 95; RESP 18
[2024-05-20 08:47] VITALS: BP 106/70; PULSE 96; RESP 16; TEMP 98.6; O2SAT 95
[2024-05-20] MEDS: POTASSIUM EFFERVESENT TAB 25 MEQ PO ONE (09:32)
--- NOTE | 2024-05-20 10:58 | DVHPN2 ---
Progress Note Date Seen: May 20, 2024 Resident Creating Document: CONRADO THOMPSON RESIDENT Medical Necessity Reason Pt with a Central, PICC or Fol: No Subjective Review of Systems Patient seen and examined at bedside Denies any active ongoing abdominal pain, denies any nausea or vomiting Notes that last bowel movement was this a.m., soft in consistency. Has had 3 bowel movements in the last 24 hours Reports feeling better than yesterday Objective vital signs Vital Sign Date Time Temp Pulse Resp B/P (MAP) Pulse Ox O2 Delivery O2 Flow Rate FiO2 05/20/24 08:47 98.6 96 16 106/70 (82) 95 98.6 05/19/24 20:00 Room Air* 0 21 Total Intake and Output 05/19/24 05/19/24 05/20/24 15:00 23:00 07:00 Intake Total 1000 ml 1100 ml 300 ml Output Total 400 ml Balance 1000 ml 1100 ml -100 ml medications Current Medications Medications Dose Ordered Sig/Ana Route Start Time Stop Time Status Last Admin Dose Admin Ondansetron HCl 4 mg Q4HP PRN IV 05/16/24 19:00 Thiamine HCl 100 mg DAILY PO 05/17/24 10:00 05/20/24 09:32 100 MG Folic Acid 1 mg DAILY PO 05/17/24 10:00 05/20/24 09:32 1 MG Sodium Phosphate 1 tab TIDWM PO 05/17/24 18:00 05/20/24 09:32 1 TAB Piperacillin Sod/ Tazobactam Sod 100 ml @ 25 mls/hr Q8HR IV 05/18/24 14:00 05/20/24 05:48 25 MLS/HR Sennosides 17.2 mg HS PO 05/18/24 22:00 05/19/24 21:18 17.2 MG Examination Constitutional: Patient was alert and oriented to time, place and person and does not appear to be in any acute distress Gen - no pallor, bilateral scleral icterus present, no cyanosis, no clubbing, no LAD, no edema . Skin - Patients skin is warm and dry.. HEENT - normocephalic, atraumatic, moist mucous membranes. Neck - full ROM, no LAD, no JVD. Pulmonary - B/L equal air entry. no crackles , no wheezing, no stridor. cardiovascular - normal S1,S2 heard. no murmurs heard. peripheral pulses normal radial 2+, pedal 2+. capillary refill normal <2 secs. GI - soft abdomen without tenderness to palpation. no hepatospleenomegaly. Bowel sounds normoactive Neurological - Bilateral upper extremity strength 5/5, bilateral lower extremity strength 5/5, no facial droop, normal speech, no tremor, no sensory deficiets. laboratory and microbiology Laboratory Tests 05/20/24 05:27 Test 05/20/24 05:27 Range/Units Serum Glucose 95 74-106 mg/dL Microbiology Date/Time Source Procedure Growth Status 05/18/24 21:30 Blood Blood Culture - Preliminary NO GROWTH AFTER 24 HOURS OF INCUBATION. Resulted 05/18/24 19:20 Voided Urine Urine Culture - Preliminary Resulted Labs and/or images reviewed: Labs reviewed by me, Image(s) reviewed by me Problem List/Assessment/Plan Problem List/Assessment/Plan Alcoholic hepatitis; Michela discriminant function 23.95 Hepatic steatosis Cholestasis Pancreatic cyst on ultrasound Elevated CA 19 9 Steatohepatitis Gallstones without cholecystitis Alcohol withdrawal S/p cystic adnexal mass removal Acute complicated UTI Constipation Plan: MiraLax once Colace Q daily Ordered complete abdominal ultrasound: Fatty infiltration of the liver Completed CT abdomen pelvis: Hepatic steatosis and hepatomegaly. Severe diffuse colonic bowel wall thickening probably related to infectious or inflammatory colitis. Ordered urine culture Consider referral for ERCP and EUS We will repeat coagulation studies Instructed patient in detail about the importance of following up with GI in the outpatient clinic, patient demonstrated understanding. Plan discussed with Dr. Pacheco Plan discussed with: Patient, Other (RN) My Orders My Orders Orders - CONRADO THOMPSON RESIDENT Procedure Category Date Status Time Stool Wbc LAB 05/19/24 Logged 16:44 Stool Bacterial BARBARA 05/19/24 Logged Culture 16:44 Dietary Evaluation Review Comments: 1. Recommend liberalizing to Regular diet - based on updated ASPEN/ESPEN guidelines, protein restriction may lead to worsening nutritional status and is not advised in acute liver failure or cirrhosis 2. Encourage continued good oral intakes >75% of meals 3. Continue to monitor weights while inpatient Expected Outcomes/Goals: Improved nutritional status, weight maintenance, improved nutrient utilization. CONRADO THOMPSON RESIDENT May 20, 2024 10:58
[2024-05-20] MEDS: MAGNESIUM SULFATE 1GM/100ML 100 ML IV ONE (11:50)
[2024-05-20 13:00] VITALS: BP 90/59; PULSE 86; RESP 18; TEMP 98.5; O2SAT 95
[2024-05-20 17:00] VITALS: BP 100/67; PULSE 96; RESP 16; TEMP 98.8; O2SAT 96
--- NOTE | 2024-05-20 19:38 | DVHDSRES ---
Discharge Summary Date of Admission Resident Creating Document: CONRADO THOMPSON RESIDENT May 16, 2024 at 18:57 Date of Discharge: May 20, 2024 Admitting Diagnosis Liver failure Alcohol withdrawal Hypokalemia Hypertension Wounds: none Labs/Diagnostic Data: Laboratory Results Test 05/20/24 11:30 05/20/24 05:27 05/19/24 05:36 05/18/24 13:01 Stool for White Cells Rare White Blood Count 10.2 10^3/uL (4.4-10.8) Red Blood Count 3.12 10^6/uL (4.0-5.20) Hemoglobin 11.6 g/dL (12.2-16.2) Hematocrit 33.3 % (36.0-46.0) Mean Corpuscular Volume 106.6 fL (80.0-100.0) Mean Corpuscular Hemoglobin 37.0 pg (28.0-32.0) Mean Corpuscular Hemoglobin Concent 34.7 g/dL (32.0-36.0) Red Cell Distribution Width 17.0 % (11.8-14.3) Platelet Count 240 10^3/uL (140-450) Mean Platelet Volume 8.5 fL (6.9-10.8) Neutrophils (%) (Auto) 69.1 % (37.0-80.0) Lymphocytes (%) (Auto) 16.6 % (10.0-50.0) Monocytes (%) (Auto) 10.1 % (0.0-12.0) Eosinophils (%) (Auto) 3.6 % (0.0-7.0) Basophils (%) (Auto) 0.6 % (0.0-2.0) Neutrophils # (Auto) 7.1 10 ^3/uL (1.6-8.6) Lymphocytes # (Auto) 1.7 10 ^3/uL (0.4-5.4) Monocytes # (Auto) 1.0 10 ^3/uL (0-1.3) Eosinophils # (Auto) 0.4 10 ^3/uL (0-0.8) Basophils # (Auto) 0.1 10 ^3/uL (0-0.2) Nucleated Red Blood Cells 0.0 % Sodium Level 136 mmol/L (136-145) Potassium Level 3.3 mmol/L (3.5-5.1) Chloride Level 104 mmol/L (98-107) Carbon Dioxide Level 25 mmol/L (20-31) Anion Gap 7 (5-15) Blood Urea Nitrogen < 5 mg/dL (9-23) Creatinine 0.49 mg/dL (0.550-1.02) Glomerular Filtration Rate Calc 128 mL/min (>90) BUN/Creatinine Ratio 10.2 (10.0-20.0) Serum Glucose 95 mg/dL (74-106) Calcium Level 8.4 mg/dL (8.7-10.4) Total Bilirubin 6.5 mg/dL (0.2-1.0) Direct Bilirubin 5.0 mg/dL (<0.3) Aspartate Amino Transferase (AST) 82 U/L (13-40) Alanine Aminotransferase (ALT) 21 U/L (7-40) Alkaline Phosphatase 154 U/L (46-116) Total Protein 6.0 g/dL (5.7-8.2) Albumin 2.7 g/dL (3.2-4.8) Phosphorus Level 3.5 mg/dL (2.4-5.1) Magnesium Level 1.8 mg/dL (1.6-2.6) CA 19-9 Antigen 576 U/mL (0-35) Test 05/18/24 05:51 05/17/24 13:16 05/17/24 11:13 05/16/24 14:58 Reticulocyte Count (auto) 1.96 % (0.5-1.5) Lactate Dehydrogenase 213 U/L (120-246) Stool Occult Blood Sample #3 Negative (Negative) Prothrombin Time 14.9 sec (9.3-11.8) Prothrombin Time INR 1.46 (0.9-1.15) Activated Partial Thromboplast Time 31.8 SEC (24.5-34.5) Troponin I High Sensitivity < 3 ng/L (</=34) Test 05/16/24 13:40 05/16/24 12:10 B-Type Natriuretic Peptide 16.53 pg/mL (0-100) Beta HCG, Quantitative < 1.5 mIU/mL (1.5-4.2) Plasma/Serum Blood Alcohol 5.0 mg/dL (<10) Hepatitis A IgM Antibody Negative Hepatitis B Surface Antigen Negative (Negative) Hepatitis B Core IgM Antibody Negative (Negative) Hepatitis C Antibody Negative (Negative) Urine Color Dark-yellow (Yellow) Urine Clarity Hazy (Clear) Urine pH 6.0 (5.0-9.0) Urine Specific [place] 1.032 (1.001-1.035) Urine Protein 1+ (Negative) Urine Ketones Trace (Negative) Urine Blood Negative /uL (Negative) Urine Nitrite 2+ (Negative) Urine Bilirubin 2+ (Negative) Urine Urobilinogen Over mg/dL (Negative) Urine Leukocyte Esterase Negative /uL (Negative) Urine RBC None seen /hpf (0 - 4) Urine Microscopic WBC 7 /HPF (0-5) Urine Squamous Epithelial Cells Few /hpf (<5) Urine Bacteria Many /hpf (None Seen) Urine Mucus Few (None Seen) Urine Glucose Trace mg/dL (Normal) Urine Opiates Screen Neg (NEGATIVE) Urine Fentanyl Screen Neg (NEGATIVE) Urine Barbiturates Screen Neg (NEGATIVE) Urine Phencyclidine Screen Neg (NEGATIVE) Urine Amphetamines Screen Neg (NEGATIVE) Urine Benzodiazepines Screen Neg (NEGATIVE) Urine Cocaine Screen Neg (NEGATIVE) Urine Cannabinoids Screen Neg (NEGATIVE) Other Laboratory Tests 05/20/24 05:27 Brief Hx & Hospital Course: Patient is a 33-year-old female with a past medical history of psoriasis came to the ED with a chief complaint of yellowness of eyes noticed since the past 3 days. Patient reported that she was apparently doing well until about 3 days ago when she noticed yellowness in her eyes. Patient denied abdominal pain, itching, pale stool, confusion. Patient did report having dark urine. Patient denied history of liver cirrhosis, blood in vomiting or blood in stool. Patient reports that she has been drinking alcohol for a long time about half bottle of vodka every day. Denies use of other illegal drugs, smoking, cannabis use. Patient denied any history of IV drug use. Patient reports to be in a relationship with a couple of partners in the past and had unprotected sex, reports that she tested negative for hepatitis about an year ago. Patient does not report of a similar episode of yellowness of eyes or skin in the past. Patient reports having bowel movement every 3 days and take stool softeners. Past medical history: Psoriasis Past surgical history: None Social history: Lives with the family and drinks half bottle of vodka daily, denies smoking, other illegal drug use Medications: Cosentyx ( secukinumab ) for psoarisis Brief hospital course and discharge plan Patient admitted to the hospital with chief complaint of yellowness of the eyes and the skin. Patient also reported of drinking alcohol following which she was put on alcohol withdrawal protocol with a chlordiazepoxide. Patient's liver function tests were followed bilirubin increased. On differential patient had direct bilirubinemia, and with the patient's history of loss of 50 lb weight loss in the last 3-4 months, high suspicion of painless jaundice MRCP was ordered to look for pancreatic mass and the common bile duct. MRCP was done which showed a cyst in the tail of the pancreas. Patient's bilirubin continued to increase and CT abdomen pelvis with IV contrast was done which showed unremarkable pancreas, hepatic steatosis and hepatomegaly, diffuse colonic bowel wall thickening. Patient did not report of abdominal pain, blood in the stool, diarrhea. GI were consulted who recommended patient should be referred for ERCP and EUS. Patient was explained the need for transferred to higher level of care for further management but the patient wanted to get discharged. Patient was explained the need to go to the ER at [facility] in the case of sudden onset pain otherwise Patient is advised to follow up in the discharge clinic from where she will be referred to the GI outpatient clinic with Dr. Clinton Pacheco for further management. Patient was advised to strictly avoid alcohol. Consults/Reason for consult GI consultation for hyperbilirubinemia Operations or Procedures Liver ultrasound FINDINGS: Liver is mildly enlarged measuring 17.5 cm and demonstrates diffuse increased echogenicity consistent with fatty infiltration. No definite focal lesion is identified in the liver. No evidence of intrahepatic or extrahepatic ductal dilatation. Common bile duct measures 5-6 mm. Gallbladder appears unremarkable with no evidence of stones or wall thickening. Sonographic [place]'s sign was negative. Right kidney measures 11.1 cm and is normal in size, contour and echogenicity. No hydronephrosis. Pancreas is not well visualized due to overlying bowel gas. No free fluid noted IMPRESSION: No acute intracranial abnormality identified. Fatty infiltration of the liver MRCP FINDINGS: Bile ducts: -Intrahepatic ducts: Non-dilated. -Extrahepatic ducts: Non-dilated. -Common bile duct: Non-dilated. -Filling defects: No filling defects -Stricture: None. Gallbladder: Multiple gallstones with sludge. Trace pericholecystic fluid. Pancreas: Pancreatic duct: No ductal dilatation. Lesions: None. Liver: Signal intensity: Homogenous. Contour: Smooth. Size: Enlarged Lesions: No focal liver lesion. ADDITIONAL FINDINGS: Lung base: Normal. Pancreas: 8 mm cyst at the tail of the pancreas could be a tiny pseudocyst. Spleen:Normal. Bowel: Normal. Adrenal glands:Normal. Kidneys and ureters:Normal. Lymph nodes:Normal. Peritoneum:Normal. Vessels: Normal. Abdominal wall: Normal. Bone: No aggressive bone lesions IMPRESSION: Multiple gallstones with sludge. Trace pericholecystic fluid is seen and could be seen with cholecystitis. Clinical correlation recommended. If there is concern, consider HIDA scan. Hepatic steatosis. 8 mm cyst at the tail of the pancreas could be a tiny pseudocyst. CT abdomen pelvis with IV contrast Findings: Lung Bases: Cardiomegaly. Dependent atelectasis. Liver: Hepatic steatosis and hepatomegaly. Gallbladder and Biliary Tree: Unremarkable Spleen: Unremarkable Pancreas: The pancreas is normal in appearance without focal lesions or abnormal enhancement. Adrenal Glands: Unremarkable Kidneys: No hydronephrosis. Bladder: Unremarkable Bowel: The stomach is grossly normal in appearance. Severe diffuse colonic bowel wall thickening. The appendix is not visualized; however, no secondary findings of acute appendicitis identified. Ascites: Absent Lymphadenopathy: No mesenteric, retroperitoneal or periportal lymphadenopathy. Abdominal Wall and Mesentery: Unremarkable. Vasculature: The visualized abdominal aorta is normal in size and caliber. Abdominal and pelvic vessels demonstrate normal enhancement. Pelvic Organs: Unremarkable Musculoskeletal: No aggressive focal bony lesions, acute fractures or dislocation. IMPRESSION: Hepatic steatosis and hepatomegaly. Severe diffuse colonic bowel wall thickening possibly related to infectious or inflammatory colitis. Pancreas is unremarkable. Condition at Discharge: Fair Final Diagnosis/Problems List # hepatitis likely alcohol-induced # jaundice # hepatic steatosis # pancreatic tail cyst # elevated CA19-9 # hyperbilirubinemia # Alcohol withdrawal # hypokalemia # hypophosphatemia # hypomagnesemia # status post surgical resection of adnexal mass in 2019 # macrocytosis, hyperchromia # history of psoriasis Discharge Disposition: Home Discharge Instruct/Medications Diet: Regular Activity: No Restrictions, As Tolerated Follow Up/Referral: Follow up in the discharge clinic in one week. further referral to GI outpatient clinic with Dr. Clinton Pacheco . Follow up in the outpatient GI clinic with Dr.N Pcaheco Medications: none Discharge Statement: "Patient was advised to return to the ER or call 911 if any headaches, dizziness, shortness of breath, chest pain, abdominal pain, bleeding, fevers, or worsening of medical condition. Patient was counseled about treatment plan, medications, possible side effects, patientverbalized understanding. All questions were answered to the best of my ability. This discharge took greater then 30 minutes in planning, reviewing documentation, counseling the patient, and discussing with other team members." ASSESSMENT ASSESSMENT Assessment # hepatitis likely alcohol-induced # jaundice # hepatic steatosis # pancreatic tail cyst # elevated CA19-9 # hyperbilirubinemia # Alcohol withdrawal # hypokalemia # hypophosphatemia # hypomagnesemia # status post surgical resection of adnexal mass in 2019 # macrocytosis, hyperchromia # history of psoriasis Date of Service: May 20, 2024 Billing Provider: REINIER VERDUZCO MD Common Visit Codes: [id number] DISCH DAY >30min HAILEE QUIJANO RESIDENT May 20, 2024 19:38 REINIER VERDUZCO MD May 24, 2024 15:54
[2024-05-20] MEDS ORDERED: NITR-52 PO (20:23)
== END 2024-05-20 18:30 | disposition home or self-care (01) | DRG 280 ==
LOC: ER 11:49 → OVERFLOW 18:57 → EAST 19:00
PROVIDERS: ADMIT Student in an Organized Health Care Education/Training Program; ATTEND Emergency Medicine
DX: K70.10 Alcoholic hepatitis without ascites (principal); K72.90 Hepatic failure, unspecified without coma; E88.89 Other specified metabolic disorders; K86.2 Cyst of pancreas; E83.39 Other disorders of phosphorus metabolism; F10.239 Alcohol dependence with withdrawal, unspecified; K76.0 Fatty (change of) liver, not elsewhere classified; E87.6 Hypokalemia; I10 Essential (primary) hypertension; E83.42 Hypomagnesemia; E80.6 Other disorders of bilirubin metabolism; D75.89 Other specified diseases of blood and blood-forming organs; N39.0 Urinary tract infection, site not specified; F41.9 Anxiety disorder, unspecified; K59.00 Constipation, unspecified; K80.20 Calculus of gallbladder without cholecystitis without obstruction; Z83.3 Family history of diabetes mellitus
CPT/HCPCS: 36415; 74177; 74181; 76705; 80053; 80074; 80307; 80320; 81001; 82248; 82270; 83520; 83615; 83735; 83880; 84100; 84484; 84702; 85025; 85045; 85048; 85610; 85730; 86256; 86301; 87040; 87045; 87086; 87088; 87186; 87427; 96361; 96365; 96366; 96368; 96375; G0378; J2543; J3480; J7060